=== PATIENT | female | born 1970 | race Caucasian/White ===

== ENCOUNTER → 2017-10-27 19:04 | Outpatient (CLI) | payer OTHER, SELFPAY ==
[2017-10-31 09:06] LABS: HPV Reflexed? NOT INDICATED
== END ==
PROVIDERS: Family Provider Family Medicine; PCP Family Medicine; Visit Provider Obstetrics & Gynecology
DX: Z12.4 Encounter for screening for malignant neoplasm of cervix (principal)
CPT/HCPCS: 88175; G0145

== ENCOUNTER → 2018-11-12 17:35 | Outpatient (CLI) | payer SELFPAY ==
--- NOTE | 2018-11-12 18:21 | MRI_ITS ---
STUDY: MRI BRAIN WITH AND WITHOUT CONTRAST REASON FOR EXAM: Female, 48 years old. Follow-up multiple sclerosis. TECHNIQUE: Standardized multiplanar fat and water weighted pulse sequences were obtained. IV Dotarem 10 was administered for the contrast portion of the examination. COMPARISON: 03/27/2015 MRI brain. FINDINGS: No appreciable change in the size, number, or configuration of supratentorial white matter FLAIR/T2 hyperintensities, pattern compatible with multiple sclerosis, with several callosal and pericallosal and subcortical lesions. No enhancement or restricted diffusion to suggest active demyelination. Mild symmetric volume loss of posterior vertebral hemispheres unchanged. No acute infarct, hemorrhage, or mass. No abnormal enhancement. Posterior fossa structures unremarkable. Flow voids preserved. No acute calvarial or extracranial soft tissue abnormality. Paranasal sinuses, mastoid air cells and middle ears patent. MRI/Brain W/WO Contrast IMPRESSION: No significant change compared to prior. Bilateral cerebral hemisphere white matter lesions compatible with multiple sclerosis again demonstrated. No enhancement or restricted diffusion to suggest active demyelination. Electronically Signed: Trip Campbell, at 20:12 EDT Tel , Service support ,
== END ==
PROVIDERS: Family Provider Family Medicine; PCP Family Medicine; Referring Provider Internal Medicine; Visit Provider Internal Medicine
DX: G35 Multiple sclerosis (principal)
CPT/HCPCS: 70553; A9575

== ENCOUNTER 2019-01-26 21:56 | Observation (INO) | payer OTHER, SELFPAY ==
[2019-01-26] VITALS (9 sets, daily range): BP systolic 100–116; BP diastolic 54–68; PULSE 76–88; RESP 16–18; TEMP 35.9–36.5; O2SAT 99–101; BMI 21.9; BMI 20.4
--- NOTE | 2019-01-26 21:58 | CT_ITS ---
STUDY: CT BRAIN WITHOUT CONTRAST REASON FOR EXAM: Female, 48 years old. Stroke. RADIATION DOSAGE (If Supplied By Facility): CTDIvol = ( 44.99 ) mGy, DLP = ( 745.49 ) mGycm TECHNIQUE: Transaxial CT imaging of the brain was performed without administration of intravenous contrast material. Individualized dose optimization techniques were used for this CT. COMPARISON: MRI of the brain, November 12, 2018. FINDINGS: Normal soft tissue structures. Normal calvarium. Normal size ventricles and extra-axial spaces for the patient''s age. Normal white matter tracts of the cerebral hemispheres. Normal basal ganglia and thalami. Normal brainstem. Normal cerebellum. There is no intracranial hemorrhage. There are no findings of an acute ischemic infarction. Normal visualized paranasal sinuses. CT/Brain/Head without Contrast IMPRESSION: No acute intracranial or calvarial abnormality. There is no major interval change. N.B. : The above information has been verbally conveyed by Kiel Gallegos DO to Abel Dolan MD, on 01/26/2019 22:09:47 (ET). Electronically Signed: Kiel Gallegos DO at 22:10 EST Tel [phone], Service support ,
--- NOTE | 2019-01-26 21:58 | EKG12_ITS ---
Test Reason : NEURO Blood Pressure : / mmHG Vent. Rate : 077 BPM Atrial Rate : 077 BPM P-R Int : 104 ms QRS Dur : 082 ms QT Int : 400 ms P-R-T Axes : 077 061 085 degrees QTc Int : 452 ms Sinus rhythm with sinus arrhythmia with short CT Otherwise normal ECG Confirmed by ALESIA LYNNE, BOUCHRA ([id number]), newspaper managing editor CARA MORAN ([id number]) on 01/27/2019 11:06:28 AM Referred By: Ganesh Simms Confirmed By:BOUCHRA DUMAS MD
--- NOTE | 2019-01-26 22:01 | ED.RN ---
NO OLD EKGS IN MUSE
--- NOTE | 2019-01-26 22:09 | RAD_ITS ---
HISTORY: weakness ADDITIONAL HISTORY: None provided. TECHNIQUE: Frontal chest radiograph. Number of images including paperwork: 1 COMPARISON: None FINDINGS: LUNGS AND PLEURA: No consolidation, mass or pleural effusion. CARDIAC SILHOUETTE: Unremarkable. MEDIASTINUM AND PETE: Unremarkable. UPPER ABDOMEN: Unremarkable. SKELETON AND SOFT TISSUES: No acute findings. OTHER DEVICES AND HARDWARE: None. RAD/Chest 1 View IMPRESSION: No acute cardiopulmonary abnormality. at 2221 Reported and signed by: Kalee Giang MD Electronically Signed: Kalee Giang MD at 22:21 EST Tel , Service support ,
[2019-01-26 22:15] LABS: Absolute Lymphocyte Count 3.99 X10^3/uL (0.83-4.51); Absolute Neutrophil Count 3.2 X10^3/uL (2.0-7.7); Basophil# 0.06 X10^3/uL; Basophil% 0.7 % (0-1); Eosinophil# 0.17 X10^3/uL; Eosinophils% 2.1 % (0-5); Hematocrit 39.6 % (37-47); Hemoglobin 13.4 g/dL (12.0-15.0); Lymphocyte # 3.99 X10^3/ul (4.0); Lymphocyte % 49.2 % (19-41); Mean Corp Hgb Conc 33.8 g/dL (32-36); Mean Corpuscular Hgb 30.6 pg (27.0-32.0); Mean Corpuscular Volume 90.4 fL (81-99); Mean Platelet Vol. 9.2 fl (6.2-12.0); Monocyte# 0.64 X10^3/uL; Monocyte% 7.9 % (0-10); NRBC Flagged by Analyzer 0 % (0-5); Neutrophil # 3.21 X10^3/uL (2.7-7.7); Neutrophil % 39.6 % (47-70); Platelet Count 200 K/mm3 (150-450); RBC Distribution Width CV 11.9 % (11.6-14.6); RBC Distribution Width SD 39.3 fl (35.1-43.9); Red Blood Count 4.38 M/mm3 (4.2-5.4); White Blood Count 8.1 K/mm3 (4.4-11.0)
[2019-01-26 22:23] LABS: International Normalized Ratio 1.1; Prothrombin Time (Protime)PT. 13.6 SECONDS (11.7-14.9)
[2019-01-26 22:24] LABS: Partial Thromboplast Time 32.3 Seconds (24.1-36.2)
[2019-01-26 22:41] LABS: Anion Gap 4 (5-15); BUN 14 mg/dL (7-18); BUN/Creat Ratio 15.5 RATIO (10-20); Calcium,Total 9.3 mg/dL (8.5-10.1); Chloride 106 mmol/L (98-107); EST Glomerular Filtration Rate 70 mL/min (>60); Est Glom Filt Rate - Afr Amer 85 mL/min (>60); Estimated Creatinine Clearance 59.15 ml/min; Glucose 118 mg/dL (74-106); Potassium 3.7 mmol/L (3.5-5.1); Sodium Level 142 mmol/L (136-145)
--- NOTE | 2019-01-26 22:48 | PCM.HP.STD ---
Problem List (1) TIA (transient ischemic attack) Status: Acute History of Present Illness Date of Admission: 01/26/19 Chief Complaint: garbled speech and right side facial droop The patient is a 48 year old F with a significant history of multiple sclerosis with left-sided weakness; hypothyroidism who presented to the emergency department with garbled speech and right sided facial droop that started few hours before presentation but resolved within 40 minutes. Stroke alert was called and tele-neurologist consulted. CT of the head was unremarkable. Emergency department doctor reported that telemetry neurologist recommended MRI of patient's brain. . Past Medical History Medical History: Medical History (Last Reviewed 01/27/19 @ 04:40 by Ganesh Simms MD) Multiple sclerosis G35 Allergies No Known Allergies Allergy (Verified 01/26/19 22:23) Home Medications: Ambulatory Orders Medication Instructions Recorded Cholecalciferol (Vitamin D3) 2,000 unit PO DAILY 01/26/19 [Vitamin D3] Clonazepam 0.58 mg PO QHS PRN 01/26/19 Levothyroxine Sodium 25 mcg PO DAILY 01/26/19 Oxybutynin Chloride [Oxybutynin 15 mg PO DAILY 01/26/19 Chloride ER] Surgical History: - - Tubal ligation Lives: With Family Smoking Status: Never smoker Alcohol: None - *Family History Maternal History Items: Stroke Paternal History Items: Heart Disease Review of Systems Constitutional: Denies: Chills, Fever, Weight Change HEENT: Denies: Head Aches, Sinus Congestion, Sinus Drainage Cardiovascular: Denies: Chest Pain, Palpitations Respiratory: Denies: Cough, Shortness of breath at rest, Sputum production Gastrointestinal: Denies: Abdominal Pain, Nausea, Vomiting Genitourinary: Denies: Dysuria Musculoskeletal: Denies: Joint Pain, Joint Tenderness Skin: Denies: Rash, Wounds Neurological: Reports: Blurred vision - chronic, Change in Speech - transient; resolved, Focal weakness - left side; chronic. Denies: Numbness, Tingling Psychiatric: Denies: Anxiety, Depression, Homicidal Ideations, Suicidal Ideations Hematologic/ Lymphatic: Denies: Easy Bruising, Easy Bleeding VTE Information - Inpt Only VTE Present on Admission: No VTE Mechan Device Prophylaxis: None VTE Pharm Prophylaxis ordered?: Yes Patient Problems: Active and Suspected Problems (Last Updated 01/26/19 @ 23:53 by Ganesh Simms MD) TIA (transient ischemic attack) (Acute) - Physical Exam Vitals/I&O's: Vital Signs Temp Pulse Resp BP Pulse Ox 96.7 F L 83 18 105/54 L 99 01/26/19 22:11 01/26/19 22:32 01/26/19 22:32 01/26/19 22:32 01/26/19 22:32 Oxygen Delivery Method Room Air Weight: 54.4 kg Body Mass Index (BMI) 21.9 Finger Stick Blood Glucose 109 General: Alert, Oriented x3, Cooperative HEENT: Atraumatic, PERRLA, EOMI, Normocephalic Neck: Supple, No JVD, Negative Carotid Bruits Lungs: Clear to auscultation, Normal air movement Cardiovascular: Regular rate, Regular Rhythm, Normal S1, Normal S2, No murmurs Abdomen: Bowel Sounds Present, Soft, Non Tender Extremities: No edema, Capillary Refill Less than 3 Seconds Skin: No rashes, No breakdown Musculoskeletal: No Tenderness to Palpation of Joints or Extremities Neurological: Cranial nerves II-XII grossly intact, - - strength in left upper extremity 2/5; strength in left lower extremity 3/5; strength in right upper extremities 5/5 Psych/Mental Status: Normal Affect, Appropriate Laboratory Results 01/26/19 22:08: WBC 8.1, RBC 4.38, Hgb 13.4, Hct 39.6, MCV 90.4, MCH 30.6, MCHC 33.8, RDW Std Deviation 39.3, RDW Coeff of Ata 11.9, Plt Count 200, MPV 9.2, Immature Gran % (Auto) 0.500, Neut % (Auto) 39.6 L, Lymph % (Auto) 49.2 H, [place] % (Auto) 7.9, Eos % (Auto) 2.1, Baso % (Auto) 0.7, Absolute Neuts (auto) 3.2, Absolute Lymphs (auto) 3.99, Nucleated RBC % 0 01/26/19 22:08: PT 13.6, INR 1.1, APTT 32.3 01/26/19 22:08: Sodium 142, Potassium 3.7, Chloride 106, Carbon Dioxide 32.0, Anion Gap 4 L, BUN 14, Creatinine 0.90, Estim Creat Clear Calc 59.15, Est GFR (MDRD) Af Amer 85, Est GFR (MDRD) Non-Af 70, BUN/Creatinine Ratio 15.5, Glucose 118 H, Calcium 9.3, Troponin I < 0.015 Assessment/Plan All Active Problems (Last Updated 01/26/19 @ 23:53 by Ganesh Simms MD) TIA (transient ischemic attack) (Acute) The patient is a 48 year old F with a significant history of multiple sclerosis with left-sided weakness; hypothyroidism who presented to the emergency department with garbled speech and right sided facial droop that started few hours before presentation but resolved within 40 minutes. Strokelike symptoms Differential Diagnoses include CVA; TIA; flare of multiple sclerosis. CT of the head was unremarkable -Check Hba1c, Lipid level Physical therapy, occupational therapy and speech therapy to work with patient. N.p.o. until bedside swallow eval. Daily aspirin. High intensity statin Serial troponin Telemetry monitoring Permissive HTN for 24 hrs. Control blood pressure with labetalol for systolic blood pressure of more than 220 or diastolic blood pressure of more than 120. MRI/MRA of head; brain; and neck. Echocardiogram ordered. Hypothyroidism Synthroid continued insomnia Insomnia Clonazepam continued Overactive bladder Oxybutynin continued Multiple sclerosis Vitamin D3 continued DVT prophylaxis Subcutaneous Lovenox. Code Visit OBSV E&M: 99008 Initial observation care L3
--- NOTE | 2019-01-26 22:54 | ED.VIS.STROK ---
History of Present Illness Chief Complaint: Neuro S/Sx Narrative: Patient presenting secondary to facial droop and speech difficulty. Patient has an underlying history of multiple sclerosis with baseline left-sided weakness. Patient at 2100 tonight had a witnessed onset of right-sided facial droop and expressive a aphasia per the . This lasted for about 40 minutes and then spontaneously resolved when EMS arrived. Patient has no history of prior similar episodes. She denies any visual changes, or persistent numbness or weakness at this time that is outside of her baseline. Patient has a additional history of hypothyroidism, but no other cerebrovascular risk factors. She is a non-smoker. Past Medical History - Allergies and Home Meds Allergies/Adverse Reactions: Allergies No Known Allergies Allergy (Verified 01/26/19 22:23) Primary Care Physician: Radha Winter NP-C [Primary Care Provider] - Past Medical History: - - Multiple sclerosis, hypothyroidism Smoking Status: Never smoker Review of Systems All systems negative except as indicated General: Denies: Chills, Fever, Sweats Eyes: Denies: Visual changes - bilaterally, Diplopia ENT: Denies: Rhinorrhea, Sore throat Cardiovascular: Denies: Chest pain, Palpitations Respiratory: Denies: Dyspnea, Cough, Dyspnea on exertion Gastrointestinal: Denies: Abdominal pain, Nausea, Vomiting, Diarrhea, Melena, Hematochezia Genitourinary: Denies: Dysuria, Hematuria, Frequency Musculoskeletal: Denies: Back pain, Extremity Pain Skin: Denies: Rash, Wounds Neurological: Reports: Weakness, - - Speech difficulty Psych: Denies: Depression Endocrine: Denies: Polyuria Hematologic: Denies: Easy bruising Allergy: Denies: Swelling of the mouth STROKE Vital Signs/Narrative: Vital Signs Temp Pulse Resp BP Pulse Ox 01/26/19 22:32 83 18 105/54 L 99 01/26/19 22:15 78 16 111/65 100 01/26/19 22:11 96.7 F L 82 16 106/58 L 101 01/26/19 22:00 88 16 116/65 100 01/26/19 21:59 100 Inital Vital Signs reviewed: Yes General: Well nourished, Well developed Head: Normocephalic, Atraumatic Eyes: Perrl, EOMI ENT: Moist mucous membranes, No rhinorrhea Neck: Supple, Nontender Cardiovascular: Regular rate, Regular rhythm, No murmurs Respiratory: No distress, CTA bilaterally, Chest nontender Abdomen: Soft, Nontender, Nondistended, Normal bowel sounds Back: Nontender, Normal Inspection Extremities: Nontender, No edema Skin: Normal color, No rash Neurological: - - NIH stroke scale is 2. 1 for left-sided arm weakness and 1 for left-sided leg weakness which is baseline Psychological: Normal affect Diagnostic/Tx/Re-eval - EKG Initial EKG Interpretation: - - Normal sinus rhythm with a rate of 77. Isoelectric ST segments normal T waves. No evidence of acute ischemia or arrhythmia. - Medical Decision Making Stroke Team Activated: Yes Patient presented with abnormal neurologic findings. Stroke team was activated prehospital. I evaluated the patient in the EMS bay, she had a patent airway and went directly to CT. Upon arrival back in the emergency department NIH was obtained which was found to be 2 secondary to baseline symptoms, the patient's symptoms for which she presented had completely resolved. I spoke with the tele-neurologist, and we agree that no TPA is indicated. Work-up for the patient was found to be negative. Patient will be admitted for further work-up of TIA. Critical care time (excluding procedures): 30-74 minutes ED Disposition - Plan for ED Patient: Disposition: Acute Care [facility] Diagnosis: TIA (transient ischemic attack)
--- NOTE | 2019-01-26 23:22 | ECHOD_ITS ---
Reason For Study: TIA/CVA Procedure This was a 2D Doppler, Color Flow transthoracic echocardiogram. Exam performed portable in patient room. Left Ventricle Normal size and thickness. The estimated ejection fraction is 65 %. Normal diastology for age. No regional wall motion abnormalities noted. Right Ventricle Normal size and thickness. Normal systolic function. Atria Normal left atrium. Normal right atrium. Normal atrial septum. Bubble contrast study negative for right to left interatrial shunt. Mitral Valve The mitral valve is structurally normal. No prolapse or stenosis seen. Tricuspid Valve Normal tricuspid valve. Unable to estimate RV systolic pressure due to insufficient tricuspid regurgitant envelope. Aortic Valve Normal aortic valve. Trisinus/trileaflet aortic valve. Pulmonic Valve The pulmonic valve is not well visualized. Great Vessels Normal aortic root. Normal arch. Normal inferior vena cava. Inferior vena cava collapse with sniff. Pericardium/Pleural No pericardial effusion. Medication Performed a rapid injection of agitated mix of 9 cc saline and 1cc air to assess for atrial septal defect. MMode/2D Measurements & Calculations LVIDd: 3.7 cm IVSd: 0.66 cm Ao root diam: 2.9 cm LVIDs: 2.4 cm LVPWd: 0.63 cm LA dimension: 2.3 cm FS: 34.8 % Time Measurements MV dec time: 0.19 sec Doppler Measurements & Calculations MV E max ron: 92.5 cm/sec Lat Peak E' Ron: 13.5 cm/sec Med Peak E' Ron: 15.3 cm/sec MV A max ron: 70.9 cm/sec E/E' lat: 6.9 E/E' med: 6.0 MV E/A: 1.3 Ao V2 max: 107.9 cm/sec LV V1 max: 86.5 cm/sec Ao max P.7 mmHg LV V1 max P.0 mmHg Interpretation Summary The estimated ejection fraction is 65 %. Normal diastology for age. Bubble contrast study negative for right to left interatrial shunt. Unable to estimate RV systolic pressure due to insufficient tricuspid regurgitant envelope. There is no comparison study available. Ordering Physician: Ganesh Simms Referring Physician: Radha Winter Performed By: Rafi Snow RCS
[2019-01-26] MEDS: Atorvastatin Calcium 80 MG Tablet PO (23:57)
[2019-01-27] VITALS (8 sets, daily range): BP systolic 87–99; BP diastolic 51–71; PULSE 68–91; RESP 15–16; TEMP 36.5–36.8; O2SAT 96–100; BMI 20.4
[2019-01-27] MEDS: Levothyroxine 25 MCG TABLET PO (05:13)
[2019-01-27 05:43] LABS: Cholesterol 163 mg/dL (200); High Density Lipoprotein 51 mg/dL; Triglycerides 37 mg/dL; Very Low Density Lipoprotein 7 mg/dL (5-40)
--- NOTE | 2019-01-27 08:00 | MRI_ITS ---
STUDY: MRA NECK WITH AND WITHOUT CONTRAST REASON FOR EXAM: Female, 48 years old. CVA TECHNIQUE: 3-D czav-qd-zjfoys (TOF) imaging was performed in an 1.5 T MRI scanner. dotarem 10ml iv was administered for the contrast enhanced images. COMPARISON: None. FINDINGS: RIGHT CAROTID ARTERIES: Normal right common carotid artery (CCA). Normal right common carotid bulb. Normal origin of the right internal carotid (ICA) artery without a hemodynamically significant stenosis. Normal visualized cervical portion of the right internal carotid artery. Normal origin of the right external carotid artery (ECA). LEFT CAROTID ARTERIES: Normal left common carotid artery (CCA). Normal left common carotid bulb. Normal origin of the left internal carotid (ICA) artery without a hemodynamically significant stenosis. Normal visualized cervical portion of the left internal carotid artery. Normal origin of the left external carotid artery (ECA). VERTEBRAL ARTERIES: Normal antegrade flow within the bilateral vertebral artery without a hemodynamically significant stenosis. MRI/MRA Neck WITH and W/O Contrast IMPRESSION: Normal bilateral cervical carotid and vertebral arteries. Electronically Signed: Lucy Martinez, at 14:26 EST Tel , Service support ,
--- NOTE | 2019-01-27 08:00 | MRI_ITS ---
STUDY: MRI BRAIN WITHOUT CONTRAST REASON FOR EXAM: Female, 48 years old. CVA, multiple sclerosis TECHNIQUE: Standardized multiplanar fat and water weighted pulse sequences were obtained. COMPARISON: Brain MRI 11/12/2018. FINDINGS: Normal size of the ventricles and extra-axial spaces for the patient''s age. Again seen are periventricular and subcortical white matter T2 and FLAIR signal hyperintensities, consistent with known multiple sclerosis . There is no evidence for recent intracranial ischemia or other cause of cytotoxic edema on diffusion weighted imaging (DWI). Normal bilateral basal ganglia. Normal thalami. There is no extra-axial fluid accumulation. Normal flow voids within the major intracranial circulation suggesting patency by spin echo criteria. Normal sella turcica, pituitary gland, infundibular stalk, optic chiasm and hypothalamus. Normal tectal plate and pineal gland. Normal midbrain, sissy and medulla. Normal cerebellum. Normal basal cisterns. Normal bilateral temporal bones. Normal bilateral internal auditory canals. No demonstrated orbital abnormality, within the constraints of a routine brain study. Normal visualized paranasal sinuses. Normal calvarium and skull base. Normal visualized soft tissue structures. Normal visualized upper cervical spine. MRI/Brain without Contrast IMPRESSION: Findings are not significantly changed from 11/12/2018. Again seen are findings consistent with known multiple sclerosis. No acute infarct . Electronically Signed: Lucy Martinez, at 14:40 EST Tel , Service support ,
--- NOTE | 2019-01-27 08:00 | MRI_ITS ---
STUDY: MRA OF THE HEAD WITHOUT CONTRAST REASON FOR EXAM: Female, 48 years old. CVA, MS TECHNIQUE: 3-D naip-va-avczij (TOF) imaging was performed with MIPs. The study was performed unenhanced. COMPARISON: None. FINDINGS: Normal bilateral petrous carotid arteries. Normal right cavernous carotid artery with a normal supraclinoid bifurcation. Normal left cavernous carotid artery with a normal supraclinoid bifurcation. Normal right A1 segments of the anterior cerebral artery. Normal left A1 segments of the anterior cerebral artery. Normal intact anterior communicating artery (ACOM). Normal bilateral A2 segments of the anterior cerebral arteries. Normal right M1 and M2 segments of the middle cerebral arteries, with a normal M1 bifurcation. Normal left M1 and M2 segments of the middle cerebral arteries, with a normal M1 bifurcation. Normal right posterior communicating artery (PCOM). Normal left posterior communicating artery (PCOM). Normal bilateral vertebral arteries. Normal basilar artery with a normal basilar bifurcation. The visualized bilateral superior cerebellar (SCA) arteries are normal. Normal bilateral P1, P2 and visualized P3 segments of the posterior cerebral arteries. There is no demonstrated aneurysm of the [place] of [place]. There is no major vessel occlusion or hemodynamically significant stenosis. There is no demonstrated abnormality of the visualized brain. MRI/MRA Head ONLY without Contrast IMPRESSION: Normal MRA of the head Electronically Signed: Lucy Martinez, at 10:03 EST Tel , Service support ,
[2019-01-27 08:28] LABS: Hemoglobin A1c 5.2 % (4.2-6.3)
[2019-01-27] MEDS: Tolterodine Tartrate 4 MG CAP.SA PO (09:53)
[2019-01-27] MEDS: Aspirin 81 MG TAB.CHEW PO (09:53)
[2019-01-27] MEDS: Enoxaparin 40 MG/0.4 ML Syringe SC (09:55)
--- NOTE | 2019-01-27 14:06 | DCINST_ITS ---
- Discharge Diagnoses Current Active Problems: Current Active and Chronic Problems (Last Reviewed 01/27/19 @ 04:40 by Ganesh Simms MD) TIA (transient ischemic attack) (Acute) You will use the following diet at home:: Regular Your food should be the consistency of: Regular Discharge Activity: Return to Normal Activity Weight Bearing Status: Weight bearing as tolerated Call your doctor if you observe: Fever of 101 or Higher, Shortness of breath, Dizziness, Fainting spells, Chest pain, Increased palpitations (irregular heartbeat), Uncontrolled pain Allergies/Adverse Reactions: Allergies No Known Allergies Allergy (Verified 01/26/19 22:23) Medications to take at Discharge Cholecalciferol (Vitamin D3) [Vitamin D3] 2,000 unit PO DAILY 01/26/19 Clonazepam 0.58 mg PO QHS PRN 01/26/19 Levothyroxine Sodium 25 mcg PO DAILY 01/26/19 Oxybutynin Chloride [Oxybutynin Chloride ER] 15 mg PO DAILY 01/26/19 Aspirin [Aspirin, Baby] 81 mg PO DAILY@0800 #90 tab.chew 01/27/19 The following prescriptions were given: Aspirin [Aspirin, Baby] 81 mg PO DAILY@0800 #90 tab.chew Prescription Printed Primary Care Physician: Radha Winter NP-C [Primary Care Provider] - Please follow up with your Primary Care Physician in: 1-2 week. Test Results: Test results from this visit will be discussed in further detail at your follow- up appointment, if applicable.
--- NOTE | 2019-01-27 14:07 | DS.PCM_ITS ---
Discharge Date and Diagnosis Date of Admission: 01/26/19 Date of Discharge: 01/27/19 - Primary Discharge Diagnosis Active and Suspected Problems (Last Reviewed 01/27/19 @ 04:40 by Ganesh Simms MD) Probable TIA (transient ischemic attack) (Acute) Hospital Course and Treatment Imaging Results: 01/27/19 08:00 Brain without Contrast [MRI] Routine MRA Head ONLY without Contrast [MRI] Routine MRA Neck WITH and W/O Contrast [MRI] Routine Clinical Impression(s) from Imaging Studies Brain CT 01/26/19 21:58 IMPRESSION: No acute intracranial or calvarial abnormality. There is no major interval change. N.B. : The above information has been verbally conveyed by Kiel Gallegos DO to Abel Dolan MD, on 01/26/2019 22:09:47 (ET). Electronically Signed: Kiel Gallegos DO at 22:10 EST Tel [phone], Service support , ADDENDUM: 01/26/19 2217 IMPRESSION: No acute intracranial or calvarial abnormality. There is no major interval change. N.B. : The above information has been verbally conveyed by Kiel Gallegos DO to Abel Dolan MD, on 01/26/2019 22:09:47 (ET). Electronically Signed: Kiel Gallegos DO at 22:10 EST Tel [phone], Service support , Chest X-Ray 01/26/19 22:09 IMPRESSION: No acute cardiopulmonary abnormality. at 2221 Reported and signed by: Kalee Giang MD Electronically Signed: Kalee Giang MD at 22:21 EST Tel , Service support , Brain MRI 01/27/19 08:00 IMPRESSION: Findings are not significantly changed from 11/12/2018. Again seen are findings consistent with known multiple sclerosis. No acute infarct . Electronically Signed: Lucy Martinez, at 14:40 EST Tel , Service support , Head MRA 01/27/19 08:00 IMPRESSION: Normal MRA of the head Electronically Signed: Lucy Martinez, at 10:03 EST Tel , Service support , Neck MRA 01/27/19 08:00 IMPRESSION: Normal bilateral cervical carotid and vertebral arteries. Electronically Signed: Lucy Martinez, at 14:26 EST Tel , Service support , Operations: None Procedures: None, EKG Summary of Care Provided: Patient seen and examined on the day of discharge and appeared to be stable to be discharged home. Acute stroke ruled out. Symptoms of slurred speech and right facial droop resolved. Her vital signs are stable. The patient is a 48 year old F patient with past medical history of multiple sclerosis presented to the emergency room because of slurred speech and right facial droop. Initial CT scan brain showed no acute findings. Her EKG revealed normal sinus rhythm without evidence of cardiac arrhythmias or acute ischemic changes. After admission, her symptoms resolved. Tele-stroke consulted and recommended MRI of the brain. MRI brain showed no evidence of acute infarct or hemorrhage, multiple sclerosis findings are marked significantly changed from MRI that was done on October. MRA of the head and neck showed no evidence of hemodynamically significant vascular disease or stenosis. Patient was treated with aspirin and statins. Her routine blood work was unremarkable. Lipid profile revealed total cholesterol of 163, LDL cholesterol of 105 and HDL cholesterol of 51. Troponin was negative. 2D echocardiogram revealed ejection fraction of 65%, normal diastology, bubble contrast study negative for holpp-of-[id number] shunt. Acute stroke ruled out. Her symptoms probably due to TIA although it was not so clear because of history of multiple sclerosis. Patient discharged home in a stable condition, discharged on aspirin, continued on her previous home medications without any changes, recommended follow-up with PCP in 1 to 2 weeks. - Physical Exam Vitals/I&O's: Vital Signs Temp Pulse Resp BP Pulse Ox 97.7 F L 91 16 99/66 97 01/27/19 11:29 01/27/19 11:47 01/27/19 11:29 01/27/19 11:29 01/27/19 11:29 Oxygen Delivery Method Room Air Weight: 111 lb 12.39 oz Body Mass Index (BMI) 20.4 Finger Stick Blood Glucose 109 Intake and Output for Last 24 Hours 01/25/19 01/26/19 01/27/19 23:59 23:59 23:59 Intake Total 810 / 810 Balance 810 / 810 General: Alert, Oriented x3, Cooperative, No apparent distress HEENT: Atraumatic, PERRLA, EOMI, Normocephalic Oral: Moist Mucosa, No Gingival or Mucosal Lesions/ Ulcerations Neck: Supple, No JVD, Negative Carotid Bruits, Trachea Midline, Thyroid Normal Size and Texture Lungs: Clear to auscultation, Normal air movement, No rhonchi, No wheeze, No rales Cardiovascular: Regular rate, Regular Rhythm, Normal S1, Normal S2, PMI Normal Abdomen: Bowel Sounds Present, Soft, Non Tender, Non-Distended, No Hepato- splenomegaly Extremities: No clubbing, No cyanosis, No edema Skin: No rashes, No breakdown Lymphatic: No Cervical, Supraclavicular, or Inguinal Adenopathy Neurological: Cranial nerves II-XII grossly intact, Neuro grossly intact Psych/Mental Status: Normal Affect, Appropriate Laboratory Results 01/26/19 22:08: WBC 8.1, RBC 4.38, Hgb 13.4, Hct 39.6, MCV 90.4, MCH 30.6, MCHC 33.8, RDW Std Deviation 39.3, RDW Coeff of Ata 11.9, Plt Count 200, MPV 9.2, Immature Gran % (Auto) 0.500, Neut % (Auto) 39.6 L, Lymph % (Auto) 49.2 H, [place] % (Auto) 7.9, Eos % (Auto) 2.1, Baso % (Auto) 0.7, Absolute Neuts (auto) 3.2, Absolute Lymphs (auto) 3.99, Nucleated RBC % 0 01/26/19 22:08: PT 13.6, INR 1.1, APTT 32.3 12/10/19 22:08: Sodium 142, Potassium 3.7, Chloride 106, Carbon Dioxide 32.0, Anion Gap 4 L, BUN 14, Creatinine 0.90, Estim Creat Clear Calc 59.15, Est GFR (MDRD) Af Amer 85, Est GFR (MDRD) Non-Af 70, BUN/Creatinine Ratio 15.5, Glucose 118 H, Calcium 9.3, Troponin I < 0.015 01/27/19 01:40: Troponin I < 0.015 01/27/19 04:40: Hemoglobin A1c 5.2 01/27/19 04:40: Troponin I < 0.015, Triglycerides 37, Cholesterol 163, LDL Cholesterol 105, VLDL Cholesterol 7, HDL Cholesterol 51 Current Medications Acetaminophen (Tylenol) 650 mg PO Q6H PRN PRN PRN Reason: Pain Score 1-3/Temp > 100.7 F Aspirin (Aspirin, Baby) 81 mg PO DAILY@0800 [facility] Last Admin: 01/27/19 09:53 Dose: 81 mg Documented by: Atorvastatin Calcium (Lipitor) 80 mg PO QHS [facility] Last Admin: 01/26/19 23:57 Dose: 80 mg Documented by: Cholecalciferol (Vitamin D) 2,000 unit PO DAILY [facility] Last Admin: 01/27/19 09:54 Dose: 2,000 unit Documented by: Clonazepam (Klonopin) 0.58 mg PO QHS PRN PRN Reason: SLEEP Enoxaparin Sodium (Lovenox) 40 mg SC DAILY [facility] Last Admin: 01/27/19 09:55 Dose: 40 mg Documented by: Glucagon () 1 mg IM .X1 PRN PRN Reason: Hypoglycemia Sodium Chloride () 250 mls @ 15 mls/hr IV .[id number] PRN PRN Reason: Saline Flush Dextrose (Dextrose 10%-Water) 250 mls @ 999 mls/hr IV X1 PRN; Protocol PRN Reason: HYPOGLYCEMIA Labetalol HCl (Trandate) 10 mg IV Q10M PRN PRN Reason: MAINTAIN BP < 220/120 Stop: 01/27/19 23:23 Levothyroxine Sodium (Synthroid) 25 mcg PO DAILY@0600 [facility] Last Admin: 01/27/19 05:13 Dose: 25 mcg Documented by: Ondansetron HCl (Zofran) 4 mg IV Q8H PRN PRN PRN Reason: NAUSEA/VOMITING Sodium Chloride () 10 - 40 ml IV UD PRN PRN Reason: SALINE FLUSH Tolterodine Tartrate (Detrol La) 4 mg PO DAILY [facility] Last Admin: 01/27/19 09:53 Dose: 4 mg Documented by: Discharge Activity: Return to Normal Activity Weight Bearing Status: Weight bearing as tolerated Call your doctor if you observe: Fever of 101 or Higher, Shortness of breath, Dizziness, Fainting spells, Chest pain, Increased palpitations (irregular heartbeat), Uncontrolled pain Home Medications: Medications to take at Discharge Cholecalciferol (Vitamin D3) [Vitamin D3] 2,000 unit PO DAILY 01/26/19 Clonazepam 0.58 mg PO QHS PRN 01/26/19 Levothyroxine Sodium 25 mcg PO DAILY 01/26/19 Oxybutynin Chloride [Oxybutynin Chloride ER] 15 mg PO DAILY 01/26/19 Aspirin [Aspirin, Baby] 81 mg PO DAILY@0800 #90 tab.chew 01/27/19 Following Prescrptions Were Given to Patient: Aspirin [Aspirin, Baby] 81 mg PO DAILY@0800 #90 tab.chew Prescription Printed Primary Care Physician: Radha Winter NP-C [Primary Care Provider] - Please follow up with your Primary Care Physician in: 1-2 week. Disposition: Home Minutes spent on discharge:: 28 Patient Condition:: Stable Medical Necessity - Tobacco Use Smoking Status: Never smoker Tobacco Use: Non-smoker Meaningful Use Info Meaningful Use Diagnoses (Choose all that apply): None applicable Code Visit OBSV E&M: 60603 Observation care discharge
== END 2019-01-27 14:06 | disposition home or self-care (01) ==
LOC: ED 22:58 → PCU 23:16
PROVIDERS: Admitting Provider Hospitalist; Emergency Provider Emergency Medicine; Family Provider Nurse Practitioner Primary Care; PCP Nurse Practitioner Primary Care; Referring Provider Hospitalist; Visit Provider Hospitalist
DX: R29.810 Facial weakness (principal); R47.81 Slurred speech; G35 Multiple sclerosis; E03.9 Hypothyroidism, unspecified; Z79.899 Other long term (current) drug therapy; N32.81 Overactive bladder; G47.00 Insomnia, unspecified; R29.702 NIHSS score 2
CPT/HCPCS: 36415; 70450; 70544; 70549; 70551; 71045; 80048; 80061; 83036; 84484; 85025; 85610; 85730; 92610; 93005; 93306; 96372; 97162; 97166; 99218; 99285; A9575; A4216; G0378

== ENCOUNTER → 2019-09-17 | Outpatient (CLI) | payer SELFPAY ==
[2019-01-27 09:50] VITALS: BMI 20.4
[2019-09-22 14:43] LABS: HPV Reflexed? NOT INDICATED
== END | disposition home or self-care (01) ==
LOC: LABSPEC 13:45
PROVIDERS: PCP Nurse Practitioner Primary Care; Visit Provider Obstetrics & Gynecology
DX: Z12.4 Encounter for screening for malignant neoplasm of cervix (principal)
CPT/HCPCS: 88175; G0145

== ENCOUNTER 2019-12-20 16:07 | Emergency (ER) | payer OTHER, SELFPAY ==
[2019-01-27 09:50] VITALS: BMI 20.4
[2019-12-20 16:07] VITALS: BP 102/62; PULSE 90; RESP 16; TEMP 36.4; O2SAT 100; BMI 27.4
--- NOTE | 2019-12-20 16:26 | ED.VIS.GEN ---
History of Present Illness Chief Complaint: Abd Pain Informant: Patient, Family Narrative: Patient is a 49-year-old female with a past medical history of MS, hypothyroidism who presents to the emergency department for right lower quadrant abdominal pain. This has been present over the past 3 to 4 days. The pain has been getting progressively worse. While sitting still she is currently rating the pain as a 5 out of 10. Laughing and movement seem to make the pain worse. She has not tried taking anything today for it. Just prior to this starting she did have a few episodes of diarrhea. She had a fever at that time. Both of these symptoms have resolved. She denies any cough or shortness of breath. No chest pain. No radiation of her symptoms into her back. She has never had this pain before. Only previous abdominal surgeries were for tubal ligation. She denies any urinary symptoms. Past Medical History - Allergies and Home Meds Allergies/Adverse Reactions: Allergies No Known Allergies Allergy (Verified 01/26/19 22:23) Primary Care Physician: Radha Winter SENIOR UNIX ADMINISTRATOR, SENIOR UNIX ADMINISTRATOR-C [Primary Care Provider] - 2 Days Past Medical History: - - Multiple sclerosis, hypothyroidism Surgical History: - - Tubal ligation Smoking Status: Never smoker - Family History Maternal Family History: Reports: Stroke Paternal Family History: Reports: Heart Disease Review of Systems All systems negative except as indicated General: Reports: Fever. Denies: Chills, Sweats Eyes: Denies: Visual changes - bilaterally, Diplopia ENT: Denies: Rhinorrhea, Sore throat Cardiovascular: Denies: Chest pain, Palpitations Respiratory: Denies: Dyspnea, Cough, Dyspnea on exertion Gastrointestinal: Reports: Abdominal pain, Diarrhea. Denies: Nausea, Vomiting, Melena, Hematochezia Genitourinary: Denies: Dysuria, Hematuria, Frequency Musculoskeletal: Denies: Back pain, Extremity Pain Skin: Denies: Rash, Wounds Neurological: Denies: Headache, Weakness, Numbness Physical Exam Vital Signs/Narrative: Vital Signs Temp Pulse Resp BP Pulse Ox 12/20/19 16:07 97.6 F L 90 16 102/62 100 Inital Vital Signs reviewed: Yes General: Well nourished, Well developed, No Acute Distress Head: Normocephalic, Atraumatic Eyes: Perrl, EOMI ENT: Moist mucous membranes, No rhinorrhea Neck: Supple, Nontender Cardiovascular: Regular rate, Regular rhythm, No murmurs Respiratory: No distress, CTA bilaterally, Chest nontender Abdomen: Soft, Nondistended, Normal bowel sounds, Tender - Right lower quadrant, Rovsig's sign. Negative for: Guarding, Rebound tenderness, Lindsay's sign Back: Nontender, Normal Inspection Extremities: Nontender, No edema Skin: Normal color, No rash Neurological: Alert, Oriented x3, Cranial nerves II-XII grossly intact, Normal Sensation, - - Left-sided weakness that is chronic due to her MS Psychological: Normal affect, Normal Mood Diagnostic/Tx/Re-eval - Medical Decision Making Patient presents to the emergency department for right lower quadrant abdominal pain. She was sent in by her PCP to evaluate for appendicitis. Upon arrival to the emergency department vital signs within normal limits. She does not appear in any acute distress. She does have significant tenderness in the right lower quadrant. Will check basic lab work along with CT scan of the abdomen/pelvis. She is currently refusing anything for pain at this time. Patient's lab work did not reveal any significant acute abnormality. Her white blood cell count is within normal limits. Urine had 2+ bacteria but no white blood cells. She is not having any urinary symptoms so we will send for culture and treat if this comes back positive. CT scan did not show any evidence of appendicitis although appendix was not well visualized. There was pretty significant fecal retention. She does have tenderness in the right lower quadrant but no peritoneal signs. Overall very benign abdominal exam to make me not think that this is an ovarian torsion and is going on for multiple days. Patient is agreeable to trying an outpatient treatment of Colace and MiraLAX. She needs to be reexamined in the next 1 to 2 days. Warning signs and symptoms for which to return to the ED were reviewed with her. She understands and is agreeable with this plan. All questions answered. ED Disposition - Plan for ED Patient: Disposition: Home or Assisted Living Diagnosis: Fecal retention, Abdominal pain Instructions: ED Abdominal Pain Unkn Cause Fem, ED Constipation Prescriptions: Docusate Sodium [Colace] 100 mg PO BID #30 cap Prescription Printed Polyethylene Glycol 3350 [Miralax] 17 gm PO DAILY 5 Days #5 [email or web address] Prescription Printed Referrals: Radha Winter SENIOR UNIX ADMINISTRATOR, SENIOR UNIX ADMINISTRATOR-C [Primary Care Provider] - 2 Days
[2019-12-20 16:39] LABS: Mucous, Urine 0 SEEN /hpf (<or=2+); Red Blood Cells-Urine 0 SEEN /hpf (0-5)
[2019-12-20 16:46] LABS: Color, Urine Yellow (Yellow); Glucose, Dipstick Normal (Normal); Ketone-Dipstick Negative (Negative); Leukocyte Esterase-Dipstick 500 /ul (Negative); Nitrite-Dipstick Negative (Negative); Occult Blood-Urine 10 /ul (Negative); Protein-Dipstick Negative (Negative); Specific Gravity, Urine 1.005 (1.002-1.030); Urine Bilirubin Dipstick Negative (Negative); Urine Clarity Clear (Clear); Urine Urobilinogen Normal (Normal)
[2019-12-20 17:00] LABS: Absolute Lymphocyte Count 1.94 X10^3/uL (0.83-4.51); Absolute Neutrophil Count 2.8 X10^3/uL (2.0-7.7); Basophil# 0.04 X10^3/uL; Basophil% 0.7 % (0-1); Eosinophil# 0.12 X10^3/uL; Eosinophils% 2.2 % (0-5); Hematocrit 35.8 % (37-47); Hemoglobin 11.5 g/dL (12.0-15.0); Lymphocyte # 1.94 X10^3/ul (4.0); Lymphocyte % 36.1 % (19-41); Mean Corp Hgb Conc 32.1 g/dL (32-36); Mean Corpuscular Hgb 29.3 pg (27.0-32.0); Mean Corpuscular Volume 91.1 fL (81-99); Mean Platelet Vol. 8.8 fl (6.2-12.0); Monocyte# 0.48 X10^3/uL; Monocyte% 8.9 % (0-10); NRBC Flagged by Analyzer 0 % (0-5); Neutrophil # 2.77 X10^3/uL (2.7-7.7); Neutrophil % 51.5 % (47-70); Platelet Count 266 K/mm3 (150-450); RBC Distribution Width CV 12.3 % (11.6-14.6); RBC Distribution Width SD 41.5 fl (35.1-43.9); Red Blood Count 3.93 M/mm3 (4.2-5.4); White Blood Count 5.4 K/mm3 (4.4-11.0)
[2019-12-20 17:20] LABS: ALB/GLOB Ratio 0.8 RATIO (0.9-2.4); AST(SGOT) 14 U/L (15-37); Alanine Aminotransfer ALT/SGPT 20 U/L (13-56); Albumin, Serum 3.3 g/dL (3.2-5.0); Alkaline Phosphatase 61 U/L (45-117); Anion Gap 5 (5-15); BUN 9 mg/dL (7-18); BUN/Creat Ratio 13.1 RATIO (10-20); Calcium,Total 9.2 mg/dL (8.5-10.1); Chloride 103 mmol/L (98-107); Creatinine, Serum 0.69 mg/dL (0.55-1.02); EST Glomerular Filtration Rate 96 mL/min (>60); Est Glom Filt Rate - Afr Amer 116 mL/min (>60); Estimated Creatinine Clearance 76.29 ml/min; Globulin 4.2 g/dL (2.2-4.2); Glucose 101 mg/dL (74-106); Lipase 101 U/L (73-393); Potassium 3.5 mmol/L (3.5-5.1); Protein, Total 7.5 g/dL (6.4-8.2); Sodium Level 141 mmol/L (136-145)
[2019-12-20 17:26] LABS: Bacteria 2+ /hpf (None Seen); Internal QC Validated? YES +Cl - CLEAR BKGD; Pregnancy, Urine Negative Negative; Squamous Epithelial Cells - UA 0-5 SEEN /hpf (5-10); White Blood Cells 0-5 SEEN /hpf (0-5)
--- NOTE | 2019-12-20 18:13 | CT_ITS ---
STUDY: CT ABDOMEN AND PELVIS WITH CONTRAST REASON FOR EXAM: Female, 49 years old. RLQ PAIN RADIATION DOSAGE (If Supplied By Facility): CTDIvol = ( 8.04 ) mGy, DLP = ( 286.35 ) mGycm TECHNIQUE: Transaxial images were obtained from the dome of the diaphragm to the symphysis pubis with oral contrast. Oral and amp; IV Gastrografin and amp; 100mL Isovue-300 was administered. Sagittal and coronal images were reconstructed. Individualized dose optimization techniques were used for this CT. COMPARISON: None. FINDINGS: The visualized lung bases are unremarkable. The visualized portions of the heart are within normal limits. Normal liver. Normal gallbladder and extrahepatic biliary system. Normal spleen. Normal pancreas. Normal bilateral adrenal glands. Normal right kidney. Normal left kidney. Normal visualized stomach. Normal small intestine. Evaluation of the large bowel is limited because although oral contrast was given, the CT scan was performed too early and no contrast has reached the large bowel. Cannot exclude segments of large bowel wall thickening. There is moderate to marked fecal retention. The appendix is not very well seen but there is no evidence for a right lower quadrant inflammatory process. Normal abdominal aorta. Normal inferior vena cava. Normal retroperitoneum. Normal urinary bladder. Normal visualized uterus. Normal abdominal wall. Normal osseous structures. CT/Abdomen/Pelvis WITH Contrast IMPRESSION: Inadequate evaluation of the large bowel which is not adequately opacified. Moderate to marked fecal retention in some segments. Cannot include segments of large bowel wall thickening. No other definite acute or significant abnormality seen. Electronically Signed: Scott Fowler MD at 18:52 EST , Service support ,
[2019-12-20 18:22] VITALS: RESP 16
[2019-12-20 19:32] VITALS: BP 128/80; PULSE 78; RESP 16; O2SAT 96
== END 2019-12-20 19:32 | disposition home or self-care (01) ==
PROVIDERS: Emergency Provider Emergency Medicine; PCP Nurse Practitioner Primary Care
DX: K59.00 Constipation, unspecified (principal); R10.9 Unspecified abdominal pain; E03.9 Hypothyroidism, unspecified; G35 Multiple sclerosis; Z79.899 Other long term (current) drug therapy; Z79.82 Long term (current) use of aspirin
CPT/HCPCS: 74177; 80053; 81001; 81025; 83690; 85025; 87086; 87088; 99283; Q9967; A4216

== ENCOUNTER → 2020-05-12 07:11 | Outpatient (CLI) | payer SELFPAY ==
--- NOTE | 2020-05-12 07:28 | MRI_ITS ---
STUDY: MRI BRAIN WITH AND WITHOUT CONTRAST REASON FOR EXAM: Female, 49 years old. MULTIPLE SCLEROSIS TECHNIQUE: Standardized multiplanar fat and water weighted pulse sequences were obtained. 11ml DOtarem via IV was administered for the contrast portion of the examination. COMPARISON: 01/27/2019 FINDINGS: There is moderate cerebral atrophy with widening of the extra-axial spaces and ventricular dilatation. There is no change in the confluent hyperintensities in the periventricular and pericallosal white matter consistent with known demyelinating disease (multiple sclerosis). No contrast-enhancing plaque. There is no evidence for recent intracranial ischemia or other cause of cytotoxic edema on diffusion weighted imaging (DWI). Normal T2* images of the brain without demonstrated susceptibility artifact. There is no demonstrated hemosiderin stain. Normal bilateral basal ganglia. Normal thalami. There is no extra-axial fluid accumulation. Normal flow voids within the major intracranial circulation suggesting patency by spin echo criteria. Normal venous enhancement. There is no enhancing intra-axial or extra-axial abnormality. Normal sella turcica, pituitary gland, infundibular stalk, optic chiasm and hypothalamus. Normal tectal plate and pineal gland. Normal midbrain, sissy and medulla. Normal cerebellum. Normal basal cisterns. Normal bilateral temporal bones. Normal bilateral internal auditory canals. No demonstrated orbital abnormality, within the constraints of a routine brain study. Normal visualized paranasal sinuses. Normal calvarium and skull base. Normal visualized soft tissue structures. Normal visualized upper cervical spine. MRI/Brain W/WO Contrast IMPRESSION: No change from 01/27/2019. Electronically Signed: Marcelino Vergara MD at 10:46 EDT Tel , Service support ,
== END ==
PROVIDERS: PCP Nurse Practitioner Primary Care; Referring Provider Internal Medicine; Visit Provider Internal Medicine
DX: G35 Multiple sclerosis (principal); R41.0 Disorientation, unspecified; A81.2 Progressive multifocal leukoencephalopathy; Z86.73 Personal history of transient ischemic attack (TIA), and cerebral infarction without residual deficits
CPT/HCPCS: 70553; A9575

== ENCOUNTER 2023-08-26 13:35 | Emergency (ER) | payer OTHER, SELFPAY ==
[2023-08-26 13:36] VITALS: BP 105/79; PULSE 99; RESP 17; TEMP 36.6; O2SAT 96
--- NOTE | 2023-08-26 14:10 | CT_ITS ---
STUDY: CT BRAIN WITHOUT CONTRAST REASON FOR EXAM: Female, 53 years old. History of fall. Head injury. Multiple seizures. RADIATION DOSAGE (If Supplied By Facility): CTDIvol = ( 44.99 ) mGy, DLP = ( 796.11 ) mGycm TECHNIQUE: Transaxial CT imaging of the brain was performed without administration of intravenous contrast material. Individualized dose optimization techniques were used for this CT. COMPARISON: Comparison is made with prior study dated January 26, 2019. FINDINGS: Soft tissue swelling overlying the left periorbital region. Normal calvarium. There is mild cerebral atrophy with widening of the extra-axial spaces and ventricular dilatation. There are areas of decreased attenuation within the white matter tracts of the supratentorial brain, consistent with microvascular disease changes. Normal basal ganglia and thalami. Normal brainstem. Normal cerebellum. There is no intracranial hemorrhage. There are no findings of an acute ischemic infarction. There is a depressed fracture along the lateral wall of the left maxillary sinus with an air-fluid level. Air-fluid level is also seen in the left sphenoid sinus. Soft tissue density in the left ethmoid sinus. Comminuted depressed fracture of the left zygomatic arch. CT/Brain/Head without Contrast IMPRESSION: Chronic involutional changes of the brain. Depressed fracture of the lateral wall of the left maxillary sinus with air-fluid level in the left maxillary sinus and left sphenoid. Comminuted depressed fracture of the left zygomatic arch. Electronically Signed: Fortunato Gutierrez MD at 14:49 EDT ,
--- NOTE | 2023-08-26 14:10 | EKG12_ITS ---
Test Reason : FALL Blood Pressure : / mmHG Vent. Rate : 088 BPM Atrial Rate : 088 BPM P-R Int : 138 ms QRS Dur : 090 ms QT Int : 400 ms P-R-T Axes : 084 053 068 degrees QTc Int : 484 ms Normal sinus rhythm with sinus arrhythmia Prolonged QT Abnormal ECG Confirmed by Abel Mauricio ([id number]), supervising film or videotape editor NATAN ESTEVEZ ([id number]) on 08/27/2023 9:52:58 AM Referred By: Confirmed By:Abel Mauricio
--- NOTE | 2023-08-26 14:10 | CT_ITS ---
STUDY: CT CERVICAL SPINE WITHOUT CONTRAST REASON FOR EXAM: Female, 53 years old. History multiple sclerosis. History of fall. Multiple seizures. RADIATION DOSAGE (If Supplied By Facility): CTDIvol = ( 12.68 ) mGy, DLP = ( 260.48 ) mGycm TECHNIQUE: High resolution transaxial imaging was performed without contrast material. Sagittal and coronal images were reconstructed. Individualized dose optimization techniques were used for this CT. COMPARISON: None FINDINGS: Normal craniovertebral junction. Normal anterior atlantoaxial articulation. Normal odontoid process. Normal cervical lordosis. Normal vertebral bodies and posterior osseous elements. C2-3: Normal endplates. Normal disc height and morphology. Normal central canal and intervertebral neuroforamina. C3-4: Normal endplates. Normal disc height and morphology. Normal central canal and intervertebral neuroforamina. C4-5: Normal endplates. Normal disc height and morphology. Normal central canal and intervertebral neuroforamina. C5-6: Normal endplates. Normal disc height and morphology. Normal central canal and intervertebral neuroforamina. C6-7: Normal endplates. Normal disc height and morphology. Normal central canal and intervertebral neuroforamina. C7-T1: Normal endplates. Normal disc height and morphology. Normal central canal and intervertebral neuroforamina. Air-fluid level seen in the left sphenoid sinus. Findings suggestive of scarring in the upper lobes. CT/Spine Cervical without Contras IMPRESSION: Air-fluid level seen in the left sphenoid sinus. Cervical spine is unremarkable otherwise. Electronically Signed: Fortunato Gutierrez MD at 15:01 EDT ,
--- NOTE | 2023-08-26 14:11 | EDS_ITS ---
HPI HPI - Fall History of Present Illness Chief Complaint: Fall Narrative Narrative: History and physical is limited secondary to current patient condition, and she received Versed. 53-year-old female presents via EMS status post fall. She has history of MS according to her with muscle spasticity and contractures of the left arm and left lower extremity. She was at home walking with her walker, and they think that one of the wheels may have fallen off. She had a mechanical fall. Her daughter had come over and found her lying on the floor. Reportedly, initially she was responsive, and had a seizure at home. They called EMS and EMS reported a second seizure and administered 5 mg of Versed. She has had shaking episodes in the past. She presents to the emergency department status post fall. Tetanus Immunization: Unknown [facility] Medical History Spastic Anxiety Multiple sclerosis Home Medications ?Medication ?Instructions ?Recorded ?Last Taken ?Type levothyroxine 25 mcg tablet 25 mcg PO DAILY 01/26/19 01/26/19 History oxybutynin chloride 15 mg 15 mg PO DAILY 01/26/19 01/26/19 History tablet,extended release 24 hr aspirin 81 mg chewable tablet 81 mg PO DAILY@0800 ##90 01/27/19 Unknown Rx docusate sodium 100 mg capsule 100 mg PO BID #30 caps 12/20/19 Unknown Rx clonazepam 0.5 mg tablet 0.5 mg PO QHS PRN PRN anxiety 08/26/23 Unknown History natalizumab 300 mg/15 mL 300 mg IV Q28D 08/26/23 Unknown History intravenous solution (Tysabri) Allergy/AdvReac Type Severity Reaction Status Date / Time No Known Allergies Allergy Verified 08/26/23 13:47 Social History Smoking Status: Never smoker ROS ROS ED Review of Systems ROS Unobtainable: due to mental status EXAM Physical Exam Narrative Exam Narrative: Afebrile. Vital signs noted. Drowsy secondary to administration of Versed. Positive abrasion left forehead with mild periorbital ecchymosis. Regular rate and rhythm. Lungs clear to auscultation bilaterally. Abdomen soft nontender with normoactive bowel sounds. Pelvis stable. Const Vital Signs: 08/26/23 13:36 08/26/23 13:48 08/26/23 14:35 Temperature 97.8 F Temperature Source Temporal Pulse Rate 99 89 Respiratory Rate 17 16 Respiratory Effort Normal Non-Labored Respiratory Depth Normal Respiratory Pattern Normal Blood Pressure 105/79 124/79 H Blood Pressure Mean 87 94 Pulse Ox 96 99 Oxygen Delivery Method Room Air Room Air Room Air 08/26/23 15:20 08/26/23 16:05 Temperature Temperature Source Pulse Rate 90 85 Respiratory Rate 17 16 Respiratory Effort Respiratory Depth Respiratory Pattern Blood Pressure 118/98 H 110/59 L Blood Pressure Mean 104 76 Pulse Ox 98 99 Oxygen Delivery Method Room Air Room Air MDM MDM MDM Narrative Medical decision making narrative: In the differential diagnosis is intracranial hemorrhage along with seizure secondary to closed head injury. Currently, patient is in a c-collar. CT imaging of the brain and of the C-spine will be obtained. Her mental status is decreased secondary to administration of benzodiazepine. EKG was obtained and interpreted by myself independently as normal sinus rhythm with sinus arrhythmia at 88 bpm without other ectopy or acute ST changes. No STEMI. I reviewed the radiology report of the CT of the brain and there is no evidence of intracranial hemorrhage, however there is a left lateral maxillary sinus wall fracture and fracture of the left zygomatic arch. CT of the cervical spine shows no evidence of an acute fracture. She was removed from this clinically by the RN. Chest x-ray in 1 view interpreted by myself independently shows no evidence of an acute fracture or pneumothorax or pneumonia. Also on my independent review of the pelvis and right hip, there is no evidence of fracture. I reviewed the radiology report which confirms my independent interpretation. Repeat examination shows her to be more awake, and alert and following commands. Her states that she confirmed that she had a mechanical fall when the wheel fell off her walker. They suspect that this was 15 minutes prior to the arrival of her daughter. I obtained basic laboratory work and she has normal white count of 8.5 with hemoglobin 11.1, electrolyte panel is significant for chloride of 109 which I think is nonspecific, glucose 107, anion gap low at 3. Given her facial fractures and her reported seizure, I discussed the patient with Dr. Bond at [facility]. She will be transferred for trauma consultation. Patient is in stable condition. Lab Data Labs: Laboratory Results - last 24 hr 08/26/23 15:17 WBC 8.5 RBC 3.75 L Hgb 11.1 L Hct 33.2 L MCV 88.5 MCH 29.6 MCHC 33.4 RDW Std Deviation 40.8 RDW Coeff of Ata 12.6 Plt Count 188 MPV 9.4 Immature Gran % (Auto) 0.400 Neut % (Auto) 62.5 Lymph % (Auto) 27.9 [place] % (Auto) 6.6 Eos % (Auto) 2.0 Baso % (Auto) 0.6 Absolute Neuts (auto) 5.4 Absolute Lymphs (auto) 2.38 Nucleated RBC % 0 PT 14.3 INR 1.1 APTT 31.6 Sodium 141 Potassium 4.0 Chloride 109 H Carbon Dioxide 29.0 Anion Gap 3 L BUN 12 Creatinine 0.66 Est GFR (MDRD) Af Amer 120 Est GFR (MDRD) Non-Af 99 BUN/Creatinine Ratio 18.3 Glucose 107 H Calcium 8.8 Total Bilirubin 0.40 AST 16 ALT 16 Alkaline Phosphatase 79 Total Protein 6.1 L Albumin 3.4 Globulin 2.7 Albumin/Globulin Ratio 1.3 Radiography Diagnostic Testing: Clinical Impression(s) from Imaging Studies Brain CT 08/26/23 14:10 IMPRESSION: Chronic involutional changes of the brain. Depressed fracture of the lateral wall of the left maxillary sinus with air-fluid level in the left maxillary sinus and left sphenoid. Comminuted depressed fracture of the left zygomatic arch. Electronically Signed: Fortunato Gutierrez MD at 14:49 EDT , Cervical Spine CT 08/26/23 14:10 IMPRESSION: Air-fluid level seen in the left sphenoid sinus. Cervical spine is unremarkable otherwise. Electronically Signed: Fortunato Gutierrez MD at 15:01 EDT , Chest X-Ray 08/26/23 14:35 IMPRESSION: Hyperinflation. The lungs are clear. Electronically Signed: Fortunato Gutierrez MD at 15:04 EDT , Hip/Pelvis X-Ray 08/26/23 14:35 IMPRESSION: Degenerative changes. No acute fracture is seen. Large amount of fecal material is seen in the colon. Electronically Signed: Fortunato Gutierrez MD at 15:03 EDT , Discharge Plan Triage Chief Complaint: Fall ED Provider: Asa Gong Dx/Rx/DC Orders Clinical Impression: Fall, Fracture of left zygomatic arch, Closed fracture of maxillary sinus, Seizure after head injury Prescriptions: No Action oxybutynin chloride 15 MG tablet extended release 24hr 15 mg PO DAILY Patient Comments: TAKE 1 TABLET BY MOUTH EVERY DAY levothyroxine 25 MCG tablet 25 mcg PO DAILY Patient Comments: TAKE 1 TABLET BY MOUTH EVERY DAY aspirin 81 MG tablet,chewable 81 mg PO DAILY@0800 Qty: 90 0RF docusate sodium 100 MG capsule 100 mg PO BID Qty: 30 0RF Patient Comments: when needed for constipation Tysabri 300 mg/15 mL solution 300 mg IV Q28D Patient Comments: was supposed to get it done 08/26/23 Rx Instructions: administer over 60 mins clonazepam 0.5 mg tablet 0.5 mg PO QHS PRN PRN (Reason: anxiety) Primary Care Provider: Radha Winter NP Referrals: Radha Winter NP, [employer] [Primary Care Provider] - Print Language: Lithuanian Disposition Disposition: Acute Care Hospital Discharge Location: [facility]
[2023-08-26] MEDS: 0.9% Normal Saline (1000mL) 1,000 ML 999 ML IV (14:19)
[2023-08-26 14:35] VITALS: BP 124/79; PULSE 89; RESP 16; O2SAT 99
--- NOTE | 2023-08-26 14:35 | RAD_ITS ---
STUDY: X-RAY - PELVIS AND RIGHT HIP REASON FOR EXAM: Female, 53 years old. Trauma -- Pelvis 2 views TECHNIQUE: 3 views of the pelvis and hip. COMPARISON: None. FINDINGS: Large amount of fecal material is seen in the colon. Normal visualized soft tissue structures. Normal bilateral iliac wings, sacroiliac joints and visualized sacrum. Normal bilateral superior and inferior pubic rami. Normal pubic symphysis. Normal bilateral ischial tuberosities. Normal visualized femoral head. There is osteoarthritic spur formation of the acetabular rim. There is moderate articular joint space narrowing of the hip. RAD/HIP, UNI W/ Pelvis 2-3 Views IMPRESSION: Degenerative changes. No acute fracture is seen. Large amount of fecal material is seen in the colon. Electronically Signed: Fortunato Gutierrez MD at 15:03 EDT ,
--- NOTE | 2023-08-26 14:35 | RAD_ITS ---
STUDY: X-RAY CHEST REASON FOR EXAM: Female, 53 years old. Trauma TECHNIQUE: Single AP portable view of the chest. COMPARISON: Comparison is made with prior study dated January 26, 2019. FINDINGS: EKG electrodes are seen. Hyperinflation. There is no demonstrated pleural abnormality. Normal size heart. Normal mediastinum and julio. Normal visualized pulmonary arteries. Normal visualized aortic arch and descending thoracic aorta. Normal visualized thoracic spine. Normal visualized ribs, clavicles, and shoulders. There is no demonstrated abnormality of the visualized soft tissue structures of the upper abdomen. RAD/Chest 1 View (Portable) IMPRESSION: Hyperinflation. The lungs are clear. Electronically Signed: Fortunato Gutierrez MD at 15:04 EDT ,
[2023-08-26 15:20] VITALS: BP 118/98; PULSE 90; RESP 17; O2SAT 98
[2023-08-26 15:27] LABS: Absolute Lymphocyte Count 2.38 X10^3/uL (0.83-4.51); Absolute Neutrophil Count 5.4 X10^3/uL (2.0-7.7); Basophil# 0.05 X10^3/uL; Basophil% 0.6 % (0-1); Eosinophil# 0.17 X10^3/uL; Hematocrit 33.2 % (37-47); Hemoglobin 11.1 g/dL (12.0-15.0); Lymphocyte # 2.38 X10^3/ul (0.83-4.51); Lymphocyte % 27.9 % (19-41); Mean Corp Hgb Conc 33.4 g/dL (32-36); Mean Corpuscular Hgb 29.6 pg (27.0-32.0); Mean Corpuscular Volume 88.5 fL (81-99); Mean Platelet Vol. 9.4 fl (6.2-12.0); Monocyte# 0.56 X10^3/uL; Monocyte% 6.6 % (0-10); NRBC Flagged by Analyzer 0 % (0-5); Neutrophil # 5.35 X10^3/uL (2.7-7.7); Neutrophil % 62.5 % (47-70); Platelet Count 188 K/mm3 (150-450); RBC Distribution Width CV 12.6 % (11.6-14.6); RBC Distribution Width SD 40.8 fl (35.1-43.9); Red Blood Count 3.75 M/mm3 (4.2-5.4); White Blood Count 8.5 K/mm3 (4.4-11.0)
[2023-08-26 15:41] LABS: International Normalized Ratio 1.1; Prothrombin Time (Protime)PT. 14.3 SECONDS (11.7-14.9)
[2023-08-26 15:42] LABS: Partial Thromboplast Time 31.6 Seconds (24.1-36.2)
[2023-08-26 15:46] LABS: ALB/GLOB Ratio 1.3 RATIO (0.9-2.4); AST(SGOT) 16 U/L (15-37); Alanine Aminotransfer ALT/SGPT 16 U/L (13-56); Albumin, Serum 3.4 g/dL (3.2-5.0); Alkaline Phosphatase 79 U/L (45-117); Anion Gap 3 (5-15); BUN 12 mg/dL (7-18); BUN/Creat Ratio 18.3 RATIO (10-20); Calcium,Total 8.8 mg/dL (8.5-10.1); Chloride 109 mmol/L (98-107); Creatinine, Serum 0.66 mg/dL (0.55-1.02); EST Glomerular Filtration Rate 99 mL/min (>60); Est Glom Filt Rate - Afr Amer 120 mL/min (>60); Globulin 2.7 g/dL (2.2-4.2); Glucose 107 mg/dL (74-106); Protein, Total 6.1 g/dL (6.4-8.2); Sodium Level 141 mmol/L (136-145)
[2023-08-26 16:05] VITALS: BP 110/59; PULSE 85; RESP 16; O2SAT 99
--- NOTE | 2023-08-26 16:32 | NURSING ---
CALLED [facility] FOR TRANSFER
--- NOTE | 2023-08-26 16:42 | NURSING ---
ACCEPTED AT [facility] VIA ED REPORT [phone]
--- NOTE | 2023-08-26 16:55 | NURSING ---
[facility] WITHIN THE HOUR
[2023-08-26 17:17] VITALS: BP 106/67; PULSE 82; RESP 17; O2SAT 99
[2023-08-26] MEDS: Acetaminophen 325 MG Tablet 650 MG PO (17:21)
[2023-08-26 17:34] VITALS: BP 106/67; PULSE 87; RESP 18; TEMP 36.7; O2SAT 99
--- NOTE | 2023-08-26 17:43 | NURSING ---
Report given to [facility] via phone.
== END 2023-08-26 17:38 | disposition short-term general hospital (02) ==
PROVIDERS: Emergency Provider Emergency Medicine; PCP Nurse Practitioner Primary Care; Visit Provider Emergency Medicine
DX: S09.90XA Unspecified injury of head, initial encounter (principal); R56.9 Unspecified convulsions; S02.40FA Zygomatic fracture, left side, initial encounter for closed fracture; S02.40DA Maxillary fracture, left side, initial encounter for closed fracture; W18.39XA Other fall on same level, initial encounter; Y92.009 Unspecified place in unspecified non-institutional (private) residence as the place of occurrence of the external cause
CPT/HCPCS: 70450; 71045; 72125; 73502; 80053; 85025; 85610; 85730; 93005; 96360; 96361; 99285; J7030; A4216

== ENCOUNTER → 2024-06-07 | Outpatient (CLI) | payer SELFPAY, OTHER ==
--- NOTE | 2024-06-07 07:32 | MRI_ITS ---
PROCEDURE: BRAIN W/WO CONTRAST 06/07/2024 REASON FOR EXAM: MS TECHNIQUE: Brain MRI without and with intravenous contrast with additional dedicated imaging of the IACs. Multiplanar and multisequence images were obtained. CONTRAST: with COMPARISON: None FINDINGS: Bilateral cerebral periventricular and subcortical as well as thalamic and corpus callosum patches of iso to hypointense T 1 and high T2/FLAIR signa, most of them seen arranged perpendicular to the ventricular long axis. No obvious enhancement. No obvious cerebellar or brain stem areas of altered signal. No intracerebral or extra-axial hematomas or enhancing masses. No hyperacute or acute infarctions could be depicted. Prominent ventricular system, cortical sulci and extra-axial CSF spaces. No shift of midline structures. Normal MRI appearance of the petrous temporal bones and cerebellopontine angles with no obvious masses. Normal MRI appearance of orbital structures, both globes, optic nerves, optic chiasm, optic tracts and optic radiations. Scanned paranasal sinuses are unremarkable MRI/Brain W/WO Contrast IMPRESSION: Bilateral cerebral and callosal patches of altered signal as detailed, possibly demyelinating with no active plaques. Mild brain atrophic changes Reading Location: [place] [id number]
== END | disposition home or self-care (01) ==
PROVIDERS: PCP Nurse Practitioner Primary Care; Referring Provider Internal Medicine; Visit Provider Internal Medicine
DX: G35 Multiple sclerosis (principal)
CPT/HCPCS: 70553; A9575

== ENCOUNTER 2024-06-21 18:39 | Inpatient (IN) | payer OTHER, SELFPAY ==
[2024-06-21] VITALS (15 sets, daily range): BP systolic 92–152; BP diastolic 67–98; PULSE 73–115; RESP 11–18; TEMP 33.4–37; O2SAT 94–100; BMI 20.2; BMI 20.5; BMI 19.3
--- NOTE | 2024-06-21 18:44 | EKG12_ITS ---
Test Reason : STROKE ALERT Blood Pressure : */* mmHG Vent. Rate : 78 BPM Atrial Rate : 78 BPM P-R Int : 140 ms QRS Dur : 92 ms QT Int : 424 ms P-R-T Axes : 82 68 72 degrees QTcB Int : 483 ms Normal sinus rhythm Prolonged QT Abnormal ECG Confirmed by Abel Mauricio ([id number]), assignment desk editor GROVER FRANCISCO ([id number]) on 06/25/2024 11:55:56 AM Referred By: Hamlet Olson Confirmed By: Abel Mauricio
--- NOTE | 2024-06-21 18:50 | CT_ITS ---
PROCEDURE: STROKE CTA HEAD AND NECK W/CON 06/21/2024 REASON FOR EXAM: NEURO DEFICIT, ACUTE, STROKE SUSPECTED TECHNIQUE: CTA imaging of the head and neck from the aortic arch to the skull vertex with out contrast and with intravenous contrast. Multiplanar and multisequence images were obtained. CONTRAST: Isovue 370 VOLUME: 75 mL One or more dose reduction techniques were used (e.g., Automated exposure control, adjustment of the mA and/or kV according to patient size, use of iterative reconstruction technique). RADIATION DOSE SUMMARY: DLP: 620.35 mGycm COMPARISON: Earlier CT brain dated 06/21/2024 FINDINGS: Aortic Arch: Unremarkable. Brachiocephalic and Subclavians: Normal. RIGHT Carotid: Right CCA: No critical stenoses. Right ICA: No critical stenoses are ulcerations. Right ECA: Unremarkable. LEFT Carotid: Left CCA: No critical stenoses. Left ICA: No critical stenoses or ulcerations. Left ECA: Unremarkable. Vertebrals: Dominant left. RIGHT Vertebral: Unremarkable. LEFT Vertebral: Unremarkable. Anatomy: Aneurysm or arteriovenous malformation: Not present. Anterior cerebral arteries: Normal. Middle cerebral arteries: Normal. Basilar artery: Normal. Posterior cerebral arteries: Normal. Other major branches of the posterior circulation: Unremarkable. Major venous structures: Unremarkable. Other findings: Neck: Unremarkable. Lungs: No abnormalities. Bones: No osseous abnormalities. No intracranial CT/STROKE CTA Head AND Neck W/Con IMPRESSION: No intracranial vascular abnormalities are demonstrated. No other significant findings. Reading Location: [facility]
--- NOTE | 2024-06-21 18:50 | CT_ITS ---
PROCEDURE: STROKE BRAIN/HEAD WITHOUT CONT 06/21/2024 REASON FOR EXAM: NEURO DEFICIT, ACUTE, STROKE SUSPECTED TECHNIQUE: Contiguous axial scans of 3.75 mm slice thicknesses with sagittal and coronal reconstruction images. One or more dose reduction techniques were utilized (e.g., automated exposure control, adjustment of mA and/or kv according to patient size, use of iterative reconstruction technique). RADIATION DOSE SUMMARY: DLP: 829.85 mGycm COMPARISON: MR dated 06/07/2024. FINDINGS: Cerebrum: No intraparenchymal hemorrhage. No abnormal areas of encephalomalacia. No mass effect or midline shift. Nieves-white matter differentiation is normal. Ventricles and cisterns: Appropriate size for patient's age. Extra-axial fluid: Unremarkable. Posterior fossa: Unremarkable cerebellum. No abnormalities involving the brainstem. Paranasal sinuses: Normal. Vasculature: Unremarkable. Mastoid air cells: unremarkable. Calvarium: Unremarkable. Soft tissues: Unremarkable. . CT/STROKE Brain/Head without Cont IMPRESSION: No acute intracranial abnormalities are demonstrated. Reading Location: [facility]
[2024-06-21 19:13] LABS: Absolute Lymphocyte Count 3.32 X10^3/uL (0.83-4.51); Absolute Neutrophil Count 3.2 X10^3/uL (2.0-7.7); Basophil# 0.09 X10^3/uL; Basophil% 1.2 % (0-1); Eosinophil# 0.13 X10^3/uL; Eosinophils% 1.7 % (0-5); Hematocrit 37.7 % (37-47); Hemoglobin 12.7 g/dL (12.0-15.0); Lymphocyte # 3.32 X10^3/ul (0.83-4.51); Lymphocyte % 44.4 % (19-41); Mean Corp Hgb Conc 33.7 g/dL (32-36); Mean Corpuscular Hgb 29.8 pg (27.0-32.0); Mean Corpuscular Volume 88.5 fL (81-99); Mean Platelet Vol. 8.9 fl (6.2-12.0); Monocyte# 0.61 X10^3/uL; Monocyte% 8.2 % (0-10); NRBC Flagged by Analyzer 0.5 % (0-5); Neutrophil # 3.24 X10^3/uL (2.7-7.7); Neutrophil % 43.4 % (47-70); POSITIVE MORPHOLOGY YES; Platelet Count 295 K/mm3 (150-450); RBC Distribution Width CV 13.2 % (11.6-14.6); RBC Distribution Width SD 42.5 fl (35.1-43.9); Red Blood Count 4.26 M/mm3 (4.2-5.4); White Blood Count 7.5 K/mm3 (4.4-11.0)
--- NOTE | 2024-06-21 19:18 | ED.RN ---
STROKE ALERT CANCELLED AT [address] LANDAVERDE.
[2024-06-21 19:24] LABS: AST(SGOT) 27 U/L (<=31); Alanine Aminotransfer ALT/SGPT 26 U/L (<=34); Albumin, Serum 4.1 g/dL (3.5-5.0); Alkaline Phosphatase 122 U/L (35-104); Anion Gap 8 (5-15); BUN 14 mg/dL (4-19); BUN/Creat Ratio 23.1 RATIO (10-20); Bilirubin, Direct 0.09 mg/dL (0.00-0.30); Calcium,Total 9.6 mg/dL (7.6-11.0); Carbon Dioxide 29.9 mmol/L (21.0-32.0); Chloride 100 mmol/L (98-108); Creatinine, Serum 0.59 mg/dL (0.70-1.20); EST Glomerular Filtration Rate 106 (>60); Estimated Creatinine Clearance 88.07 ml/min (50-250); Glucose 96 mg/dL (70-99); Potassium 4.2 mmol/L (3.3-5.1); Protein, Total 7.1 g/dL (5.9-8.4); Sodium Level 137 mmol/L (133-145); Total Bilirubin 0.19 mg/dL (0.00-1.30)
[2024-06-21 19:25] LABS: International Normalized Ratio 0.9; Prothrombin Time (Protime)PT. 12.7 SECONDS (11.7-14.9)
[2024-06-21 19:25] LABS: Lactic Acid < 1.0 mmol/L (0.0-2.0)
[2024-06-21 19:26] LABS: Partial Thromboplast Time 35.1 Seconds (24.1-36.2)
[2024-06-21 19:34] LABS: Differential Indicated SCAN CRITERIA MET
--- NOTE | 2024-06-21 19:40 | RAD_ITS ---
PROCEDURE: CHEST 1 VIEW 06/21/2024 REASON FOR EXAM: NEURO DEFICIT, ACUTE, STROKE SUSPECTED TECHNIQUE: Frontal view of the chest. COMPARISON: 08/26/2023 FINDINGS: Lungs: Lungs clear of pneumonia and congestion. Pleura: No pleural effusions, thickening, or pneumothorax. Heart: Normal in size and configuration. Mediastinum/Nicole: Unremarkable. Great vessels: Unremarkable. Bones/soft tissues: Unremarkable. Cardiac monitoring leads overlie the chest wall. RAD/Chest 1 View IMPRESSION: No active cardiopulmonary disease.. Reading Location: [facility]
[2024-06-21 19:41] LABS: Troponin T High Sensitivity 13 ng/L (<=14)
[2024-06-21] MEDS: levETIRAcetam IV 2,000 MG in 0.9% Normal Saline (250mL Bag) 230 ML 1000 MG IV (19:42)
[2024-06-21 19:45] LABS: Bacteria 0 SEEN /hpf (None Seen); Mucous, Urine 0 SEEN /hpf (<or=2+)
[2024-06-21 19:52] LABS: Color, Urine Straw (Yellow); Glucose, Dipstick Normal (Normal); Ketone-Dipstick Negative (Negative); Leukocyte Esterase-Dipstick Negative /ul (Negative); Nitrite-Dipstick Negative (Negative); Occult Blood-Urine Negative /ul (Negative); Protein-Dipstick Negative (Negative); Urine Bilirubin Dipstick Negative (Negative); Urine Clarity Clear (Clear); Urine Urobilinogen Normal (Normal)
[2024-06-21 20:22] LABS: Platelet Estimate ADEQUATE (ADEQ)
--- NOTE | 2024-06-21 21:11 | EDS_ITS ---
HPI History of Present Illness Chief Complaint: Stroke Alert Informant: spouse/S.O. and EMS Narrative Narrative: 54-year-old female presenting to the emergency department as prehospital stroke alert. states that she was treated for a UTI last week. Over the past couple days he states that she has seemed more confused asking why she is taken the antibiotic. However she otherwise seems to be doing well. She has a history of MS (follows at the [facility] in [place]). She had an intracranial hemorrhage following trauma last year and had a seizure at that timehad a seizure since. states that he was mowing the lawn and came inside and found her slumped on her rollator. He states that she tried to speak with him and it seemed that the right side of her face may have been drooping. EMS arrived. They stated that en route to the hospital she had a generalized seizure and they gave her Versed. [facility] Medical History (Updated 06/21/24 @ 21:[address] Hamlet Olson DO) Spastic Anxiety Multiple sclerosis Home Medications ?Medication ?Instructions ?Recorded ?Last Taken ?Type levothyroxine 25 mcg tablet 25 mcg PO DAILY 01/26/19 1 03/29/18 History clonazepam 0.5 mg tablet 0.5 mg PO QHS PRN PRN anxiet y 08/26/23 Unknown History natalizumab 300 mg/15 mL 300 mg IV Q28D 08/26/23 Unkn own History intravenous solution (Tysabri) cephalexin 500 mg capsule 500 mg PO Q12.TCU 06/21/24 U nknown History cholecalciferol (vitamin D3) 50 50 mcg PO QDAY 5 Unknown History mcg (2,000 unit) capsule oxybutynin chloride 10 mg 10 mg PO DAILY 06/21/24 Unkn own History tablet,extended release 24 hr Allergy/AdvReac Type Severity Reaction Status Date / Time No Known Allergies Allergy Verified 06/21/24 18:45 Social History household members: spouse housing: house Smoking Status: Never smoker EXAM Physical Exam Const Vital Signs: 06/21/24 18:40 06/21/24 18:58 06/21/24 19:30 Temperature 98.6 F Temperature Source Oral Pulse Rate 115 H 77 Respiratory Rate 18 12 Blood Pressure 152/98 H 113/76 Blood Pressure Mean 116 88 Pulse Ox 94 100 99 Oxygen Delivery Method Room Air Non-Rebreather Non-Rebreather Oxygen Flow Rate (L/min) 10 15 06/21/24 20:00 06/21/24 21:00 06/21/24 21:00 Temperature 92.1 F L Temperature Source Pulse Rate 74 73 73 Respiratory Rate 12 14 14 Blood Pressure 122/82 H 119/73 119/73 Blood Pressure Mean 95 88 88 Pulse Ox 100 100 100 Oxygen Delivery Method Non-Rebreather Non-Rebreather Oxygen Flow Rate (L/min) 15 15 06/21/24 21:23 Temperature 92.1 F L Temperature Source Core Pulse Rate 73 Respiratory Rate 12 Blood Pressure 119/73 Blood Pressure Mean 88 Pulse Ox 100 Oxygen Delivery Method Non-Rebreather Oxygen Flow Rate (L/min) 15 Positive well nourished and well developed General Appearance ED: well developed and NAD HEENT Reports normocephalic, head/scalp atraumatic and moist mucous membranes Eyes PERRL Eyes Narrative: Pupils are 5-3 bilaterally Neck no lymphadenopathy, supple and no JVD Resp normal respiratory effort and clear to auscultation bilaterally Cardio regular rate, regular rhythm and no murmurs GI normal to inspection, nondistended, normoactive bowel sounds and non-tender Palpation: soft Extremity normal to inspection General Extremety ED: Negative for edema General Extremity: Negative for edema Neuro Neuro Narrative: Patient is sedated. She withdraws from pain Psych Mood & Affect: tearful Skin no rashes or lesions noted Skin Narrative: Superficial abrasion right forearm MDM MDM MDM Narrative Medical decision making narrative: Differential diagnosis includes but not limited to stroke seizure sedation UTI sepsis dissection cardiac dysrhythmia ACS Patient was taken from the ambulance bay directly to the CT scanner where a head CT and a CTA of head and neck was obtained. These do not show acute findings. Patient has remained sedated but is starting to move all of her extremities. She was able to squeeze her 's hand and start to open her eyes. She has progressively become hypothermic and we applied [place] hugger. Shepherd catheter was placed which does not demonstrate UTI. Blood work rather unremarkable lactic acid less than 1. Creatinine 0.59 normal electrolytes white count 7.5 troponin is 14 EKG is nonischemic my independent interpretation of the chest x-ray is no acute process. Patient was seen by [facility] neurology. We administered 2 Keppra. Plan of care is admission into the ICU. I do not believe that thrombolytics are indicated at this time. We cannot perform a proper NIH due to the mental status of the patient. I do not see an LVO. This is discussed with family who notes understanding of the risk benefits. History & Record Review Discussion w/independent historian: EMS personnel and Family Lab Data Attestation: I reviewed the patient's lab results. Labs: Laboratory Results - last 24 hr 06/21/24 06/21/24 06/21/24 17:27 18:30 18:55 WBC 7.5 RBC 4.26 Hgb 12.7 Hct 37.7 MCV 88.5 MCH 29.8 MCHC 33.7 RDW Std Deviation 42.5 RDW Coeff of Ata 13.2 Plt Count 295 MPV 8.9 Immature Gran % (Auto) 1.100 H Neut % (Auto) 43.4 L Lymph % (Auto) 44.4 H [place] % (Auto) 8.2 Eos % (Auto) 1.7 Baso % (Auto) 1.2 H Absolute Neuts (auto) 3.2 Absolute Lymphs (auto) 3.32 Nucleated RBC % 0.5 Platelet Estimate ADEQUATE PT 12.7 INR 0.9 APTT 35.1 Sodium 137 Potassium 4.2 Chloride 100 Carbon Dioxide 29.9 Anion Gap 8 BUN 14 Creatinine 0.59 L Estim Creat Clear Calc 88.07 Est GFR (MDRD) Non-Af 106 BUN/Creatinine Ratio 23.1 H Glucose 96 Hemoglobin A1c 5.3 Lactic Acid < 1.0 Calcium 9.6 Total Bilirubin 0.19 Direct Bilirubin 0.09 AST 27 ALT 26 Alkaline Phosphatase 122 H Troponin T High Sens 13 Troponin T Hi Sens 2 Hr Total Protein 7.1 Albumin 4.1 Globulin 3.0 Urine Color Straw Urine Clarity Clear Urine pH 7.0 Ur Specific [place] 1.010 Urine Protein Negative Urine Glucose (UA) Normal Urine Ketones Negative Urine Occult Blood Negative Urine Nitrite Negative Urine Bilirubin Negative Urine Urobilinogen Normal Ur Leukocyte Esterase Negative Urine RBC 0-5 SEEN Urine WBC 0-5 SEEN Ur Squamous Epith Cells 0-5 SEEN Urine Bacteria 0 SEEN Urine Mucus 0 SEEN 06/21/24 20:36 WBC RBC Hgb Hct MCV MCH MCHC RDW Std Deviation RDW Coeff of Ata Plt Count MPV Immature Gran % (Auto) Neut % (Auto) Lymph % (Auto) [place] % (Auto) Eos % (Auto) Baso % (Auto) Absolute Neuts (auto) Absolute Lymphs (auto) Nucleated RBC % Platelet Estimate PT INR APTT Sodium Potassium Chloride Carbon Dioxide Anion Gap BUN Creatinine Estim Creat Clear Calc Est GFR (MDRD) Non-Af BUN/Creatinine Ratio Glucose Hemoglobin A1c Lactic Acid Calcium Total Bilirubin Direct Bilirubin AST ALT Alkaline Phosphatase Troponin T High Sens Troponin T Hi Sens 2 Hr 14 Total Protein Albumin Globulin Urine Color Urine Clarity Urine pH Ur Specific [place] Urine Protein Urine Glucose (UA) Urine Ketones Urine Occult Blood Urine Nitrite Urine Bilirubin Urine Urobilinogen Ur Leukocyte Esterase Urine RBC Urine WBC Ur Squamous Epith Cells Urine Bacteria Urine Mucus Radiography Diagnostic Testing: Clinical Impression(s) from Imaging Studies Brain CT 06/21/24 18:50 IMPRESSION: No acute intracranial abnormalities are demonstrated. Reading Location: [facility] Head/Neck CTA 06/21/24 18:50 IMPRESSION: No intracranial vascular abnormalities are demonstrated. No other significant findings. Reading Location: [facility] Chest X-Ray 06/21/24 19:40 IMPRESSION: No active cardiopulmonary disease.. Reading Location: [facility] EKG Initial EKG: Attestation: I personally reviewed and interpreted this EKG as follows: Comments: Normal sinus rhythm ventricular to 78 bpm. Management Discussion w/another healthcare provider: Hospitalist (Dr Olson) and Nail Feeder ([facility]) Discharge Plan Dx/Rx/DC Orders Clinical Impression: Seizure, AMS (altered mental status) Disposition Disposition: Acute Care Hospital [facility] Discharge Date/Time: 06/21/24 22:51
--- NOTE | 2024-06-21 21:13 | PCM.HP.STD ---
HPI - General General Date of Admission: 06/21/24 Date of Service: 06/21/24 Chief Complaint: Unresponsive with Right Facial Droop and Seizure. HPI Narrative ADELAIDA JOVEL, is a 54 F with a past medical history of multiple sclerosis; on natalizumab followed at the [facility] in [place], hypothyroidism; on levothyroxine, anxiety; on clonazepam qhs prn, OAB; on oxybutynin, history of fall; with maxillary fracture, small SAH and seizure (2023) and recently diagnosed UTI; on cephalexin for the past few days who presents to [facility] ER with her complaining of patient being unresponsive with Right facial droop and seizure. Mrs. Jovel is not a fully-reliable historian at this time since she was treated with versed 4 mg IV once by EMS so information was gathered from chart, medical staff and computer. According to the record she was last known well around 5:00 PM when her came in from mowing the lawn and found her unresponsive with her eyes rolled back and unable to talk she was slumped over her rollator. Her also thought he noticed a Right facial droop so he activated EMS. When the squad arrived she had a witnessed tonic-clonic seizure for which she was treated with IV versed. Her also noticed she was having 'scattered thoughts' intermittently for the past few days with patient confused as to why she was taking an antibiotic but she seemed to be okay until this evening. Her denies seizures since last year after her fall. She was then evaluated by [facility] teleneurology and suspected to have a seizure with postictal confusion and lethargy rather than CVA with patient having Brain CT revealed no acute intracranial abnormalities followed by CTA of the head and neck with IV contrast that revealed no acute intracranial vascular abnormalities or other significant findings. She was then loaded with IV levetiracetam and the hospitalist service was called to complete her CVA evaluation. Shortly after admission she developed Hypothermia of 92.1 ?F and hypotension of 78/61 mmHg consistent with suspected Sepsis of unknown origin and she was then admitted to the ICU for stay that is expected to extend beyond 2 midnights. [facility] Medical History (Updated 06/22/24 @ 05:[address] Hamlet Olson DO) Spastic Anxiety Multiple sclerosis Home Medications ?Medication ?Instructions ?Recorded ?Last Taken ?Type levothyroxine 25 mcg tablet 25 mcg PO DAILY 01/26/19 01/26/19 History clonazepam 0.5 mg tablet 0.5 mg PO QHS PRN PRN anxiety 08/26/23 Unknown History natalizumab 300 mg/15 mL 300 mg IV Q28D 08/26/23 Unknown History intravenous solution (Tysabri) cephalexin 500 mg capsule 500 mg PO Q12.TCU 06/21/24 Unknown History cholecalciferol (vitamin D3) 50 50 mcg PO QDAY 06/21/24 Unknown History mcg (2,000 unit) capsule oxybutynin chloride 10 mg 10 mg PO DAILY 06/21/24 Unknown History tablet,extended release 24 hr Allergy/AdvReac Type Severity Reaction Status Date / Time No Known Allergies Allergy Verified 06/21/24 18:45 Social History household members: spouse housing: house Smoking Status: Never smoker ROS ROS Narrative Full review of systems was not possible due to patient's recent treatment with Versed and postictal state after recent witnessed tonic-clonic seizure. Vital Signs Vital Signs Vital Signs: 06/21/24 18:40 06/21/24 18:58 06/21/24 19:30 Temperature 98.6 F Temperature Source Oral Pulse Rate 115 H 77 Respiratory Rate 18 12 Blood Pressure 152/98 H 113/76 Blood Pressure Mean 116 88 Pulse Ox 94 100 99 Oxygen Delivery Method Room Air Non-Rebreather Non-Rebreather Oxygen Flow Rate (L/min) 10 15 06/21/24 20:00 Temperature Temperature Source Pulse Rate 74 Respiratory Rate 12 Blood Pressure 122/82 H Blood Pressure Mean 95 Pulse Ox 100 Oxygen Delivery Method Non-Rebreather Oxygen Flow Rate (L/min) 15 Weight Weight: 116 lb 2.938 oz Body Mass Index (BMI) 20.5 Physical Exam Const no apparent distress and average body habitus Constitutional Narrative: Patient is sedated after Versed. Orientation / Consciousness: lethargic HEENT normocephalic, head/scalp atraumatic, hearing grossly normal bilaterally and moist oral mucous membranes Eyes PERRL, EOMs intact bilaterally and conjunctivae normal Neck no lymphadenopathy, supple and no JVD Resp normal respiratory effort, no retractions, no use of accessory muscles and clear to auscultation bilaterally Cardio regular rate and regular rhythm GI normal to inspection, nondistended, normoactive bowel sounds, soft to palpation, non-tender and non-distended Extremity normal to inspection and no clubbing, cyanosis or edema Skin Skin Narrative: Patient has no evidence of rash, abscess, wounds or jaundice. Neuro CN's II-XII intact bilaterally, moves all extremities and no focal motor deficits Neuro Narrative: Patient is sedated after Versed. Psych Psych Narrative: Patient is sedated after Versed. Results Medical Records Data Attestation: I reviewed the patient's medical records Lab / Micro Data Attestation: I reviewed the patient's lab results. 06/21/24 18:30 06/21/24 18:30 Labs: Laboratory Results - last 24 hr 06/21/24 17:27: Urine Color Straw, Urine Clarity Clear, Urine pH 7.0, Ur Specific [place] 1.010, Urine Protein Negative, Urine Glucose (UA) Normal, Urine Ketones Negative, Urine Occult Blood Negative, Urine Nitrite Negative, Urine Bilirubin Negative, Urine Urobilinogen Normal, Ur Leukocyte Esterase Negative 06/21/24 18:30: WBC 7.5, RBC 4.26, Hgb 12.7, Hct 37.7, MCV 88.5, MCH 29.8, MCHC 33.7, RDW Std Deviation 42.5, RDW Coeff of Ata 13.2, Plt Count 295, MPV 8.9, Immature Gran % (Auto) 1.100 H, Neut % (Auto) 43.4 L, Lymph % (Auto) 44.4 H, [place] % (Auto) 8.2, Eos % (Auto) 1.7, Baso % (Auto) 1.2 H, Absolute Neuts (auto) 3.2, Absolute Lymphs (auto) 3.32, Nucleated RBC % 0.5, Platelet Estimate ADEQUATE, PT 12.7, INR 0.9, APTT 35.1, Sodium 137, Potassium 4.2, Chloride 100, Carbon Dioxide 29.9, Anion Gap 8, BUN 14, Creatinine 0.59 L, Estim Creat Clear Calc 88.07, Est GFR (MDRD) Non-Af 106, BUN/Creatinine Ratio 23.1 H, Glucose 96, Calcium 9.6, Total Bilirubin 0.19, Direct Bilirubin 0.09, AST 27, ALT 26, Alkaline Phosphatase 122 H, Troponin T High Sens 13, Total Protein 7.1, Albumin 4.1, Globulin 3.0 06/21/24 18:55: Lactic Acid < 1.0 Imaging Radiology Impression Brain CT 06/21/24 18:50 IMPRESSION: No acute intracranial abnormalities are demonstrated. Reading Location: [facility] Head/Neck CTA 06/21/24 18:50 IMPRESSION: No intracranial vascular abnormalities are demonstrated. No other significant findings. Reading Location: [id number] Chest X-Ray 06/21/24 19:40 IMPRESSION: No active cardiopulmonary disease.. Reading Location: [facility] Imaging Services [address] [place] [address] [id number] Abdomen/Pelvis without Cont MR#: [id number] Acct: [id number] Name: ADELAIDA JOVEL Crystal Rep #: [id number] : 1970 F 54 From: Robert Sarmiento MD PCP: Radha Winter, [facility] Status: ADM IN Study: Abdomen/Pelvis without Cont Date of Exam: 06/22/24 Exam# [id number] Ordering Dr: Hamlet Olson DO PROCEDURE: ABDOMEN/PELVIS WITHOUT CONT 06/22/2024 REASON FOR EXAM: SEPSIS OF UNKNOWN ORIGIN. TECHNIQUE: Abdomen and pelvis CT without intravenous contrast. Noncontrast technique limits evaluation of the abdominal and pelvic viscera. Coronal and Sagittal reconstruction series were provided. One or more dose reduction techniques were used (e.g., Automated exposure control, adjustment of the mA and/or kV according to patient size, use of iterative reconstruction technique). PATIENT PREPARATION: Per protocol ORAL CONTRAST TYPE: None. COMPARISON: 12/20/2019 FINDINGS: Platelike area at the visualized left base may represent atelectasis. Contrast material is seen in the right and left renal collecting system with mjeo-wy-pswslnqe right-sided hydronephrosis. A Shepherd catheter is present within the collapsed bladder. The bladder wall appears diffusely thickened although nonspecific with underdistention, clinically correlate. The liver, adrenal glands, gallbladder, pancreas and spleen appear within limits on noncontrast imaging. No bowel dilation or free air. Jydlwqoq-ga-jkldh amount of ascending and transverse colonic stool. No evidence of colonic wall thickening or pericolonic inflammatory change. The appendix is not definitely identified, no secondary signs. Abdominal aorta appears within limits on noncontrast imaging. The ovaries/adnexa and uterus appear within limits. No free fluid. The visualized osseous structures appear within limits. CT/Abdomen/Pelvis without Cont IMPRESSION: Platelike area at the visualized left base may represent atelectasis. Contrast material is seen in the right and left renal collecting system with onsi-kt-qefayllc right-sided hydronephrosis. A Shepherd catheter is present within the collapsed bladder. The bladder wall appears diffusely thickened although nonspecific with underdistention, clinically correlate. Scsjinki-lk-twasd amount of ascending and transverse colonic stool. No evidence of colonic wall thickening or pericolonic inflammatory change. Reading Location: [id number] CC: CONNER Winter; Dr. Hamlet Olson, DO ~ Multiple Games Dealer: Signed Assessment & Plan Assessment/Plan (1) Seizure: (2) TIA (transient ischemic attack): (3) AMS (altered mental status): QUALIFIERS: Altered mental status type: unspecified Qualified Code(s): R41.82 - Altered mental status, unspecified (4) Multiple sclerosis: (5) Sepsis: QUALIFIERS: Sepsis acute organ dysfunction status: with acute organ dysfunction Sepsis type: sepsis due to unspecified organism Severe sepsis acute organ dysfunction type: unspecified Severe sepsis shock status: with septic shock Qualified Code(s): A41.9 - Sepsis, unspecified organism; R65.21 - Severe sepsis with septic shock (6) Hydronephrosis: QUALIFIERS: Hydronephrosis type: unspecified Qualified Code(s): N13.30 - Unspecified hydronephrosis PLAN: Plan 1. Witnessed tonic-clonic seizure with postictal confusion exacerbated by IV midazolam with AMS and possible TIA with Hypothermia of 92.1 degrees Fahrenheit and Hypotension of 78/61 mmHg noted shortly after admission consistent with suspected Sepsis of unknown origin with negative UA and negative chest x-ray present on admission and CT of the abdomen and pelvis positive for contrast material seen in the right and left renal collecting system with rddv-gc-etbfvgrs Right-sided Hydronephrosis - Admit to ICU. Check MRI of brain with IV contrast to evaluate for evidence of CVA and to assess for flare of MS. Check echocardiogram to evaluate LVEF. Give rectal aspirin plus statin. Continue IV levetiracetam 1 g IV twice daily. Give IV lorazepam as needed for breakthrough seizure activity. Check EEG to evaluate for epileptiform discharges. Continue [place] hugger to achieve normothermia. Place PICC in AM and wean Levophed drip as tolerated. Check TSH, B12, folate, hemoglobin A1c, lipid profile, VONNIE and UDS to evaluate for reversible causes of confusion. Check renal ultrasound to further characterize potential lesion causing Right hydronephrosis. Give acetaminophen LA as needed for pain or fever. Finally, we will consult cost recorder and urologist to see this patient on rounds in the a.m. for further recommendations with the help of above appreciated in advance. 2. Multiple Sclerosis; on natalizumab IV q. 28 days complicating #1 - Check MRI with IV contrast given history of MS to check for objective evidence of flare. 3. Recently diagnosed UTI; on cephalexin for the past few days compounding #1 & #2 - UA negative for infection at this time. 4. History of fall; with maxillary fracture and small SAH and seizure (08/2023) adding to the medical complexity of #1 - #3 - Noted. 5. Hypothyroidism; on levothyroxine - Restart levothyroxine in AM and check TSH. 6. Anxiety; on clonazepam qhs prn - Hold additional benzodiazepines at this time to allow sensorium to clear. 7. OAB; on oxybutynin - Restart this agent when patient can safely tolerate oral intake. 8. DVT prophylaxis - Heparin 5,000U sq BID plus SCD's. Total time: Approximately (but not less than) 75 minutes. Sepsis Attestation Sepsis Alert: Yes Sepsis Attestation: Agree w/Sepsis Date exam was performed: 06/22/24 Time exam was performed: 01:45 Possible Source of Sepsis: Unknown Sepsis Organ Dysfunction Criteria Present: SBP < 90 mmHg or MAP < 65 mmHg and New/Unexplained change in mental status Fluid Resuscitation Fluid resuscitation indicated?: Yes Fluid Resuscitation ordered: 30 ml/kg fluid bolus ordered Amount of fluid ordered: 2 Reason for lesser fluid bolus:: Concern for fluid overload Sepsis Note Date exam was performed: 06/22/24 Time exam was performed: 05:30 Sepsis Attestation: Sepsis re-evaluation was performed Response to fluids: Non Fluid responsive hypotension and Vasopressors started Charges/Coding Visit Charges Inpatient E&M: 48080 Init Hosp L3
[2024-06-21 21:18] LABS: Troponin T High Sens 2 HR 14 ng/L (<=14)
[2024-06-21 21:29] LABS: Red Blood Cells-Urine 0-5 SEEN /hpf (0-5); Squamous Epithelial Cells - UA 0-5 SEEN /hpf (5-10); White Blood Cells 0-5 SEEN /hpf (0-5)
--- NOTE | 2024-06-21 21:44 | ECHOD_ITS ---
Reason For Study Reason For Study: TIA/CVA Procedure This was a 2D Doppler, Color Flow transthoracic echocardiogram. Technically difficult study, patient scanned supine due to condition. Exam performed portable in ICU/CCU. Left Ventricle Normal size and thickness. The LV systolic function is normal. EF is 65 %. Normal diastololic function. Right Ventricle Normal right ventricle. Atria The left and right atria are normal. No bubble study performed. Mitral Valve Trivial mitral valve insufficiency. Tricuspid Valve Trivial tricuspid valve insufficiency. Normal pulmonary artery pressure. Aortic Valve Trisinus/trileaflet aortic valve. Pulmonic Valve The pulmonic valve is not well visualized. Great Vessels The aortic root is not well visualized. Pericardium/Pleural No pericardial effusion. MMode/2D Measurements & Calculations LVIDd: 4.1 cm IVSd: 0.82 cm LAV(MOD- bp): 15.5 ml LVIDs: 2.5 cm LVPWd: 0.87 cm LAV(MOD- bp) Indexed: 10.2 ml/m2 FS: 39.1 % LAV(MOD- sp2): 11.8 ml LAV(MOD- sp4): 18.2 ml SV(MOD-sp4): 36.8 ml SV(sp4- el): 35.6 ml LVAd ap4: 20.1 cm2 LVLd ap4: 6.5 cm SI(MOD-sp4): 24.4 ml/m2 EDV(MOD-sp4): 53.4 ml EDV(sp4-el): 52.5 ml LVAs ap4: 9.5 cm2 LVLs ap4: 4.5 cm ESV(MOD-sp4): 16.5 ml ESV(sp4-el): 16.9 ml EF(MOD-sp4): 69.0 % EF(sp4-el): 67.9 % LA A4 area: 9.6 cm2 RA A4 area: 6.9 cm2 TAPSE: 2.1 cm Time Measurements MV dec time: 0.18 sec Doppler Measurements & Calculations MV E max ron: 74.1 cm/sec Lat Peak E' Ron: 15.1 cm/sec Med Peak E' Ron: 13.7 cm/sec MV A max ron: 55.0 cm/sec E/E' lat: 4.9 E/E' med: 5.4 MV E/A: 1.3 MV V2 max: 104.8 cm/sec MV P1/2t max ron: 104.8 cm/sec Ao V2 max: 123.9 cm/sec MV max P.4 mmHg MV P1/2t: 61.6 msec Ao max P.1 mmHg MV V2 mean: 56.4 cm/sec MV dec slope: 498.2 cm/sec2 Ao V2 mean: 83.2 cm/sec MV mean P.5 mmHg MVA(P1/2t): 3.6 cm2 Ao mean P.1 mmHg MV V2 VTI: 18.5 cm Ao V2 VTI: 28.3 cm AV (velocity ratio): 0.76 LV V1 max: 81.3 cm/sec TR max ron: 206.9 cm/sec LV V1 max P.6 mmHg TR max P.1 mmHg LV V1 mean P.6 mmHg LV V1 mean: 59.4 cm/sec LV V1 VTI: 21.3 cm ECHO/Echo Complete Interpretation Summary The LV systolic function is normal. EF is 65 %. Ordering Physician: Hamlet Olson Referring Physician: Hamlet Olson Performed By: Rafi Snow RCS
--- NOTE | 2024-06-21 22:42 | CM.ED ---
Social Work Reason for visit: Stroke alert SW met with patients while patient was in imaging. stated patient had been a little more confused over last several days and today he came inside to find her sitting on her walker with her head back and not speaking. stated he immediately called 911. Emotional support provided. Patients older son also arrived shortly after patient arrived in the ED. Talisha Snowden, PLATE PAINTER APPRENTICE, COST REPORT CLERK
[2024-06-21 23:06] LABS: Troponin T High Sens 4 HR 14 ng/L (<=14)
[2024-06-21 23:30] LABS: Hemoglobin A1c 5.3 % (<=5.6)
[2024-06-21] MEDS: 0.9% Saline Lock 10 ML Syringe IV (23:38)
[2024-06-21] MEDS: 0.9% Normal Saline (1000mL) 1,000 ML 70 ML IV (23:38)
[2024-06-21] MEDS: Aspirin 300 MG Suppository RC (23:38)
[2024-06-21] MEDS: Heparin Injection (Vial) 5,000 UNIT/ML VIAL 5000 UNIT SC (23:38)
[2024-06-22] VITALS (55 sets, daily range): BP systolic 75–111; BP diastolic 52–83; PULSE 71–89; RESP 11–20; TEMP 34.2–35.9; O2SAT 98–100; BMI 19.3; BMI 19.9
[2024-06-22 00:53] LABS: Alcohol, Blood (Medical)-Serum < 10.1 mg/dL (<=10.0)
[2024-06-22 01:12] LABS: Vitamin B12 841 pg/mL (180-914)
--- NOTE | 2024-06-22 01:38 | CT_ITS ---
PROCEDURE: ABDOMEN/PELVIS WITHOUT CONT 06/22/2024 REASON FOR EXAM: SEPSIS OF UNKNOWN ORIGIN. TECHNIQUE: Abdomen and pelvis CT without intravenous contrast. Noncontrast technique limits evaluation of the abdominal and pelvic viscera. Coronal and Sagittal reconstruction series were provided. One or more dose reduction techniques were used (e.g., Automated exposure control, adjustment of the mA and/or kV according to patient size, use of iterative reconstruction technique). PATIENT PREPARATION: Per protocol ORAL CONTRAST TYPE: None. COMPARISON: 12/20/2019 FINDINGS: Platelike area at the visualized left base may represent atelectasis. Contrast material is seen in the right and left renal collecting system with sdau-ga-gqkauuef right-sided hydronephrosis. A Shepherd catheter is present within the collapsed bladder. The bladder wall appears diffusely thickened although nonspecific with underdistention, clinically correlate. The liver, adrenal glands, gallbladder, pancreas and spleen appear within limits on noncontrast imaging. No bowel dilation or free air. Bxflhwvh-wz-ezkjj amount of ascending and transverse colonic stool. No evidence of colonic wall thickening or pericolonic inflammatory change. The appendix is not definitely identified, no secondary signs. Abdominal aorta appears within limits on noncontrast imaging. The ovaries/adnexa and uterus appear within limits. No free fluid. The visualized osseous structures appear within limits. CT/Abdomen/Pelvis without Cont IMPRESSION: Platelike area at the visualized left base may represent atelectasis. Contrast material is seen in the right and left renal collecting system with mi mt-jr-wqdbayjh right-sided hydronephrosis. A Shepherd catheter is present within the collapsed bladder. The bladder wall aidan ears diffusely thickened although nonspecific with underdistention, clinically correlate. Qcowghde-ji-yudem amount of ascending and transverse colonic stool. No evidence of colonic wall thickening or pericolonic inflammatory change. Reading Location: [id number]
[2024-06-22] MEDS: 0.9% Normal Saline (1000mL) 1,000 ML 999 ML IV ×2 (01:40→03:00)
[2024-06-22] MEDS: Piperacil/Tazobactam 3.375 GM in 0.9% Normal Saline (50mL MB+) 50 ML IV ×3 (02:23→21:41)
[2024-06-22 02:56] LABS: Lactic Acid < 1.0 mmol/L (0.0-2.0)
[2024-06-22 03:08] LABS: Amphetamine Urine NEGATIVE (<1000 ng/mL); Barbiturate Urine NEGATIVE (< 200 ng/mL); Benzodiazepine Urine PRESUMPTIVE POSITIVE (< 200 ng/mL); Buprenorphine Urine NEGATIVE (< 200 ng/mL); Cocaine Urine NEGATIVE (< 300 ng/mL); Fentanyl, Urine NEGATIVE; Methadone Urine NEGATIVE (< 300 ng/mL); Opiates Urine NEGATIVE (< 300 ng/mL); Oxycodone, Urine NEGATIVE (< 100 ng/mL); PCP Urine NEGATIVE (< 25 ng/mL); THC Urine NEGATIVE (< 50 ng/mL)
[2024-06-22] MEDS: Pantoprazole Sodium 40 MG in 0.9% Normal Saline (100mL MB+) 100 ML 330 MG IV ×2 (03:35→09:49)
[2024-06-22] MEDS: 0.9% Saline Lock 10 ML Syringe IV (03:35)
[2024-06-22 04:08] LABS: Cholesterol 156 mg/dL (<=200); High Density Lipoprotein 44 mg/dL; Low Density Lipoprotein Calc. 99 mg/dL; Triglycerides 65 mg/dL; Very Low Density Lipoprotein 13 mg/dL (5-40); cholesterol:hdl ratio screen 3.53
[2024-06-22] MEDS: Norepinephrine 8 MG in 0.9% Normal Saline (250mL Bag) 242 ML 9.4 MG CONT INF (04:45)
--- NOTE | 2024-06-22 05:59 | US_ITS ---
PROCEDURE: KIDNEY AND BLADDER, 06/22/2024 9:11 a.m. REASON FOR EXAM: R HYDRONEPHROSIS ON CT; EVAL. FOR STONE OR STRICTU TECHNIQUE: Grayscale and color doppler ultrasound of the kidneys and bladder was performed. COMPARISON: 2:05 a.m. FINDINGS: Right kidney: 8.5 cm in length. Fullness of the renal pelvis with trace hydronephrosis, improved from previous CT. No visualized mass or calculus. Left kidney: 8.2 cm in length. Fullness of the renal pelvis without tr caliectasis/hydronephrosis. No visualized mass or calculus. Bladder: Estimated volume 292 mL. Shepherd catheter visualized. Bladder wall trabeculation. Wall thickening better seen on previous CT. Other: None. US/Kidney and Bladder IMPRESSION: 1. Fullness of bilateral renal pelvis with trace hydronephrosis on the RIGHT, i mproved from previous CT. No visualized nephrolithiasis. 2. Note that the ureters are poorly evaluated sonographically. If there is per sistent concern for stricture or ureteral calculus, recommend CT urogram with and without IV contrast. Note a delay to a llow passage of the previously seen excreted contrast prior to CT urogram would be optimal. 3. Bladder wall thickening and trabeculation better seen on previous CT, sugges ting chronic bladder outlet obstruction and/or cystitis. 4. Additional description as above. Reading Location: [id number]
[2024-06-22] MEDS: levETIRAcetam IV 1,000 MG/100 ML BAG 400 MG IV ×2 (06:42→21:21)
--- NOTE | 2024-06-22 07:12 | MRI_ITS ---
PROCEDURE: BRAIN W/WO CONTRAST 06/22/2024 REASON FOR EXAM: SEIZURE TECHNIQUE: Brain MRI without and with intravenous contrast with additional dedicated imaging of the IACs. Multiplanar and multisequence images were obtained. CONTRAST: 10 cc IV Clariscan was administered. COMPARISON: None FINDINGS: BRAIN/PARENCHYMA: No evidence of acute infarction or acute intracranial hemorrhage. There are subcortical and periventricular white matter FLAIR hyperintensities, likely related to chronic microvascular ischemic disease. No abnormal post-contrast enhancement. EXTRA-AXIAL SPACES: No abnormal extra-axial fluid collections. Patent basal cisterns and foramen magnum. MIDLINE SHIFT: None. VENTRICLES: Moderate generalized volume loss with concordant ventricular enlargement. SCALP SOFT TISSUES & CALVARIUM: No significant abnormality. VISUALIZED SINUSES & MASTOIDS: Mild paranasal sinus mucosal thickening.. The mastoid air cells are clear. ARTERIAL FLOW VOIDS: Preserved major arterial flow voids indicating gross patency. MRI/Brain W/WO Contrast IMPRESSION: 1. No acute intracranial abnormality. 2. No suspicious intracranial mass, abnormal parenchymal or leptomeningeal enha ncement. 3. Moderate chronic microvascular ischemia and involutional changes. Reading Location: [facility]
--- NOTE | 2024-06-22 07:12 | PN.HOSP_ITS ---
Reason for Visit Reason for Visit: Seizure Subjective Subjective No further seizure overnight. No issues this morning. Awaiting further imaging and neuro input. Per discussion with urology they do not feel that this hydronephrosis is anything that needs to be managed acutely based on review of imaging and clinical situation. Outpatient follow-up is recommended. Objective Data Objective Data Vital Signs: Vital Signs Temp Pulse Resp BP Pulse Ox O2 Del Method O2 Flow Rate 95.5 F L 83 11 L 103/57 L 100 Nasal Cannula 2 06/22/24 06:00 06/22/24 06:00 06/22/24 06:00 06/22/24 06:00 06/22/24 06:00 06/22/24 06:00 06/22/24 06:00 Oxygen Flow Rate (L/min) 2 Oxygen Delivery Method Nasal Cannula Weight: 51.1 kg Body Mass Index (BMI) 19.9 Intake & Output: Intake and Output for Last 24 Hours 06/20/24 06/21/24 06/22/24 23:59 23:59 23:59 Intake Total 250 / 250 1922.98 / 1922.98 Output Total 975 / 975 Balance 250 / 250 947.98 / 947.98 Lab / Micro Data 06/21/24 18:30 06/21/24 18:30 Labs: Laboratory Results - last 24 hr 06/21/24 17:27: Urine Color Straw, Urine Clarity Clear, Urine pH 7.0, Ur Specific [place] 1.010, Urine Protein Negative, Urine Glucose (UA) Normal, Urine Ketones Negative, Urine Occult Blood Negative, Urine Nitrite Negative, Urine Bilirubin Negative, Urine Urobilinogen Normal, Ur Leukocyte Esterase Negative, Urine RBC 0-5 SEEN, Urine WBC 0-5 SEEN, Ur Squamous Epith Cells 0-5 SEEN, Urine Bacteria 0 SEEN, Urine Mucus 0 SEEN 06/21/24 18:30: WBC 7.5, RBC 4.26, Hgb 12.7, Hct 37.7, MCV 88.5, MCH 29.8, MCHC 33.7, RDW Std Deviation 42.5, RDW Coeff of Ata 13.2, Plt Count 295, MPV 8.9, I mmature Gran % (Auto) 1.100 H, Neut % (Auto) 43.4 L, Lymph % (Auto) 44.4 H, [place] % (Auto) 8.2, Eos % (Auto) 1.7, Baso % (Auto) 1.2 H, Absolute Neuts (auto) 3.2, Absolute Lymphs (auto) 3.32, Nucleated RBC % 0.5, Platelet Estimate ADEQUATE, PT 12.7, INR 0.9, APTT 35.1, Sodium 137, Potassium 4.2, Chloride 100, Carbon Dioxide 29.9, Anion Gap 8, BUN 14, Creatinine 0.59 L, Estim Creat Clear Calc 88.07, Est GFR (MDRD) Non-Af 106, BUN/Creatinine Ratio 23.1 H, Glucose 96, Hemoglobin A1c 5.3, Calcium 9.6, Total Bilirubin 0.19, Direct Bilirubin 0.09, AST 27, ALT 26, Alkaline Phosphatase 122 H, Troponin T High Sens 13, Total Protein 7.1, Albumin 4.1, Globulin 3.0 06/21/24 18:55: Lactic Acid < 1.0 06/21/24 20:36: Troponin T Hi Sens 2 Hr 14 06/21/24 22:43: Troponin T Hi Sens 4Hr 14, Vitamin B12 841, TSH 4.220 H 06/21/24 23:30: Serum Folate 10.90, Ethyl Alcohol < 10.1 06/22/24 01:50: Lactic Acid < 1.0 06/22/24 02:15: Urine Opiates Screen NEGATIVE, U Buprenorphine Qual NEGATIVE, Ur Oxycodone Screen NEGATIVE, Urine Methadone Screen NEGATIVE, Urine Fentanyl Screen NEGATIVE, Ur Barbiturates Screen NEGATIVE, Ur Phencyclidine Scrn NEGATIVE, Ur Amphetamines Screen NEGATIVE, U Benzodiazepines Scrn PRESUMPTIVE POSITIVE, Urine Cocaine Screen NEGATIVE, U Cannabinoids Screen NEGATIVE 06/22/24 03:40: Triglycerides 65, Cholesterol 156, LDL Cholesterol, Calc 99, VLDL Cholesterol 13, HDL Cholesterol 44, Cholesterol/HDL Ratio 3.53, Free T4 1.20, Free T3 pg/dL 2.0 L Radiography Diagnostic Testing: Radiology Impression Brain CT 06/21/24 18:50 IMPRESSION: No acute intracranial abnormalities are demonstrated. Reading Location: [facility] Head/Neck CTA 06/21/24 18:50 IMPRESSION: No intracranial vascular abnormalities are demonstrated. No other significant findings. Reading Location: [facility] Chest X-Ray 06/21/24 19:40 IMPRESSION: No active cardiopulmonary disease.. Reading Location: [facility] Abdomen/Pelvis CT 06/22/24 01:38 IMPRESSION: Platelike area at the visualized left base may represent atelectasis. Contrast material is seen in the right and left renal collecting system with [id number] right-sided hydronephrosis. A Shepherd catheter is present within the collapsed bladder. The bladder wall appears diffusely thickened although nonspecific with underdistention, clinically correlate. Eczcivct-ip-[id number] amount of ascending and transverse colonic stool. No evidence of colonic wall thickening or pericolonic inflammatory change. Reading Location: [facility] Physical Exam Const alert, no apparent distress, average body habitus and well nourished Constitutional Narrative: Middle-aged, Nilesh, white female, sitting up in bed, at bedside, patient with minimal verbal interaction today but acknowledges me and shakes her head yes and no HEENT head/scalp atraumatic and moist oral mucous membranes Head and Scalp: normocephalic Resp normal respiratory effort, no retractions, no use of accessory muscles and clear to auscultation bilaterally Auscultation: Negative for rales, rhonchi or wheezes Cardio regular rate, regular rhythm, S1 normal heart sound, S2 normal heart sound, no murmurs, no rub, no gallops and no clicks GI normal to inspection, nondistended, normoactive bowel sounds, soft to palpation and non-tender Extremity no clubbing, cyanosis or edema Extremity Narrative: Patient with baseline contractures related to her multiple sclerosis especially noted in her left upper extremity Neuro Neuro Narrative: Patient with baseline impairment related to her MS with no acute issues Psych Psych Narrative: Affect is flat Assessment & Plan Assessment/Plan (1) Hydronephrosis: QUALIFIERS: Hydronephrosis type: unspecified Qualified Code(s): N 13.30 - Unspecified hydronephrosis (2) Shock: (3) Seizure: PLAN: Plan Generalized tonic-clonic seizure - Per documentation had intracranial hemorrhage with seizure after - Has not been on any antiepileptic medications - Had seizure and route and was given Versed - EEG read is pending - Thus far reversible causes are unremarkable - MRI of the brain is negative - Echocardiogram is unremarkable - Does not appear to be an acute infection that is the etiology but cultures are still pending - Await further neurology and put - Continue Keppra at this time - Avoid medications that lower seizure threshold Undifferentiated shock - Fluid resuscitation ordered - Patient was given many medications that can affect blood pressure in the emergency department for seizure - Wean Levophed as able - Patient does have baseline issues with systolics in the 90s - Will continue broad-spectrum antibiotics for now until further cultures have resulted - Lactic acid is unremarkable so unclear on the significance of her blood pressure measurements Right-sided hydronephrosis - Urology is consulted and feels there is no need for acute intervention at this time based on objective data and reviewing of the images. - She does recommend outpatient follow-up with urology Right facial droop - Resolved - MRI is unremarkable - May have been a component of Richy's paralysis - Awaiting neurology input Multiple sclerosis - Type unclear - On natalizumab IV q. 28 days complicating - MRI with and without contrast with no new lesions identified - Awaiting further neurology input Remote fall - Patient with maxillary sinus fracture and small subarachnoid hemorrhage - Had seizure following event - Happened in August 2023 - Patient is fairly debilitated at baseline Recent UTI - Current UA is not suggestive of infection - Had been on Keflex - is concerned that her symptoms may be related to the Keflex--> it would be unlikely but cephalosporins can cause neurotoxicity Hypothyroidism - Continue home levothyroxine For TSH is within normal limits Neurogenic bladder - Continue home oxybutynin Vitamin D deficiency - Continue home cholecalciferol DVT prophylaxis - Continue subcu heparin CODE STATUS - Full code as verified with Charges/Coding Visit Charges Inpatient E&M: 54167 Subs Hosp L2 NIHSS NIHSS Nursing Documentation NIHSS Nursing Documentation: NIHSS: Ischemic Stroke/TIA Start: 06/21/24 23:04 Text: For ICU Patients: NIH sroke scale at Status: Active presentation and every 2 hours or with change in RN caregiver Freq: [id number] Protocol: Activity Type Activity Date Activity User E-sign Co-sign Detail Recorded Client Recorded Date Recorded By Document 06/22/24 06:00 [id number] 06/22/24 06:38 TM 06/22/24 06:00 NIH Stroke Scale [NIHSS] A score of 0 is normal or asymptomatic . Total possible score is 42. Inpatient: RN or Physician to activate a stroke alert for onset of new stroke symptoms or with NIHSS increase >/= 3 points. Following change in neurological status, NIHSS will be performed per physician order or more frequently PRN. -1a. Level of Consciousness 1 - Not alert; Arousable by minor stimuli to obey, answer & respond -1b. LOC Questions 1 - Answers ONE question correctly -1c. LOC Commands 0 - Performs BOTH tasks correctly -2. Best Gaze 0 - Normal -3. Visual 0 - No visual loss -4. Facial Palsy 0 - Normal symmetrical movements -5a. Left Arm 3 - No effort against gravity ; arm falls -5b. Right Arm 3 - No effort against gravity ; arm falls -6a. Left Leg 3 - No effort against gravity ; leg falls to bed immediately -6b. Right Leg 3 - No effort against gravity ; leg falls to bed immediately -7. Limb Ataxia 0 - Absent -8. Sensory 0 - Normal; no sensory loss -9. Best Language 2 - Severe aphasia; -10. Dysarthria 0 - Normal -11. Extinction and Inattention 0 - No abnormality -Total 16 Query Text:A score of 0 is normal or asymptomatic. Total possible score is 42 . ED: Notify Physician for NIHSS increase by > / = 3 points. Inpatient: RN or Physician to activate a stroke alert for NIHSS increase of > / = 3 points.
--- NOTE | 2024-06-22 07:44 | CON.PCM.CC_ITS ---
Assessment & Plan Assessment/Plan (1) Multiple sclerosis: (2) AMS (altered mental status): QUALIFIERS: Altered mental status type: unspecified Qualified Code(s): R41.82 - Altered mental status, unspecified (3) Seizure: PLAN: Plan RECOMMENDATIONS: 1. Administer additional IV fluid resuscitation as ordered. 2. Continue Levophed to maintain a mean arterial pressure at or above 65 mmHg or systolic blood pressure greater than 90 mmHg. 3. Obtain arterial blood gas and check ammonia level. 4. Continue antiepileptics. 5. Continue Synthroid as ordered. 6. Tentative plans for MRI brain this afternoon. 7. Urology consultation is pending. IMPRESSIONS: 1. Undifferentiated shock Unclear source of infection. It is certainly plausible that the patient's hemodynamic instability may be the consequence of medications that were administered in the emergency department versus intravascular volume depletion. Accordingly, we will plan to administer additional IV fluids at this time. Although no definitive source of infection has yet to be identified, we will continue antimicrobials for the next 24 to 48 hours, while awaiting culture data. In the interim, I would recommend that we wean her Levophed to maintain a systolic blood pressure at or above 90 mmHg or MAP greater than 65 mmHg. According to the patient's , she chronically runs on the low side with normal blood pressures in the 90s systolic. Although there was evidence of mild to moderate right-sided hydronephrosis on CT imaging, urology does not feel that the patient requires any form of intervention at this time. 2. Altered mental status Potentially related to postictal state versus side effects of benzodiazepine administration. The patient does have a known history of MS along with an unspecified seizure disorder. She has been appropriately loaded on Keppra. Recommend continuing seizure precautions. MRI brain has been scheduled for this afternoon. Recommend follow-up with neurology after testing is completed. Lastly, we will check ammonia level and ABG. 3. Recently diagnosed UTI/history of MS/hypothyroidism/anxiety Complicates care, management, recovery and prognosis. Continue home medications as indicated. Physical therapy will eventually need to work with the patient. TIME: 35 minutes of critical care time, independent of procedures, was spent addressing the patient's undifferentiated shock, altered mental status, review of all data and collaboration with care team. HPI Consult Data Date of Consult: 06/22/24 HPI Narrative Reason for Consultation: Sepsis HPI Narrative: The patient is a 54-year-old female, with a history as outlined below, who presented to the emergency department on June 22 with altered mental status. The patient has a known history of multiple sclerosis along with hypothyroidism, anxiety, unspecified seizure disorder and chronic hypotension. According to the patient's , she recently completed antimicrobials on an outpatient basis for a UTI. At her baseline, he indicated that her blood pressures typically run in the 90s systolic. According to documentation, the patient did experience a witnessed tonic-clonic seizure by EMS providers while en route to the hospital. On presentation to the emergency department, the patient was initially documented to be afebrile and hemodynamically stable. Laboratory evaluation revealed a normal white blood cell count. Coagulation profile was within normal limits. Chemistry profile was unremarkable. Lactate was within normal limits. Urine analysis was unremarkable. Toxicology screen revealed a presumptive positive for benzodiazepines. Alcohol level was negative. CT head revealed no acute intracranial abnormalities. CTA head and neck was negative. Chest x-ray was unremarkable. The patient was evaluated by [facility] teleneurology with recommendations to load with Keppra. While in the emergency department, the patient became hypothermic and hypotensive. She did receive supplemental IV fluid hydration, but was ultimately placed on vasopressor support. The patient was subsequently admitted to the medical intensive care unit for further management. [facility] Medical History (Updated 06/22/24 @ 05:[address] Hamlet Olson DO) Spastic Anxiety Multiple sclerosis Home Medications ?Medication ?Instructions ?Recorded ?Last Taken ?Type levothyroxine 25 mcg tablet 25 mcg PO DAILY 01/26/19 1 03/29/18 History clonazepam 0.5 mg tablet 0.5 mg PO QHS PRN PRN anxiet y 08/26/23 Unknown History natalizumab 300 mg/15 mL 300 mg IV Q28D 08/26/23 Unkn own History intravenous solution (Tysabri) cephalexin 500 mg capsule 500 mg PO Q12.TCU 06/21/24 U nknown History cholecalciferol (vitamin D3) 50 50 mcg PO QDAY 5 Unknown History mcg (2,000 unit) capsule oxybutynin chloride 10 mg 10 mg PO DAILY 06/21/24 Unkn own History tablet,extended release 24 hr Allergy/AdvReac Type Severity Reaction Status Date / Time No Known Allergies Allergy Verified 06/21/24 18:45 Social History household members: spouse housing: house Smoking Status: Never smoker ROS ROS Narrative 10 systems were reviewed with pertinent positives as noted in the HPI above. Physical Exam Const Constitutional Narrative: The patient is somnolent but arouses to verbal stimulation. General Appearance: cooperative HEENT normocephalic and head/scalp atraumatic Eyes PERRL, EOMs intact bilaterally and conjunctivae normal Neck supple General: trachea midline Chest inspection of chest normal Resp normal respiratory effort Auscultation: Negative for rales, rhonchi or wheezes Cardio regular rate and regular rhythm GI normal to inspection, nondistended, normoactive bowel sounds Extremity no clubbing, cyanosis or edema Extremity Narrative: Contracted left upper extremity Skin no rashes or lesions noted Neuro CN's II-XII intact bilaterally and no focal motor deficits Psych Mood & Affect: flat affect Lab / Micro Data 06/21/24 18:30 06/21/24 18:30 Labs: Laboratory Results - last 24 hr 06/21/24 17:27: Urine Color Straw, Urine Clarity Clear, Urine pH 7.0, Ur Specific [place] 1.010, Urine Protein Negative, Urine Glucose (UA) Normal, Urine Ketones Negative, Urine Occult Blood Negative, Urine Nitrite Negative, Urine Bilirubin Negative, Urine Urobilinogen Normal, Ur Leukocyte Esterase Negative, Urine RBC 0-5 SEEN, Urine WBC 0-5 SEEN, Ur Squamous Epith Cells 0-5 SEEN, Urine Bacteria 0 SEEN, Urine Mucus 0 SEEN 06/21/24 18:30: WBC 7.5, RBC 4.26, Hgb 12.7, Hct 37.7, MCV 88.5, MCH 29.8, MCHC 33.7, RDW Std Deviation 42.5, RDW Coeff of Taa 13.2, Plt Count 295, MPV 8.9, I mmature Gran % (Auto) 1.100 H, Neut % (Auto) 43.4 L, Lymph % (Auto) 44.4 H, [place] % (Auto) 8.2, Eos % (Auto) 1.7, Baso % (Auto) 1.2 H, Absolute Neuts (auto) 3.2, Absolute Lymphs (auto) 3.32, Nucleated RBC % 0.5, Platelet Estimate ADEQUATE, PT 12.7, INR 0.9, APTT 35.1, Sodium 137, Potassium 4.2, Chloride 100, Carbon Dioxide 29.9, Anion Gap 8, BUN 14, Creatinine 0.59 L, Estim Creat Clear Calc 88.07, Est GFR (MDRD) Non-Af 106, BUN/Creatinine Ratio 23.1 H, Glucose 96, Hemoglobin A1c 5.3, Calcium 9.6, Total Bilirubin 0.19, Direct Bilirubin 0.09, AST 27, ALT 26, Alkaline Phosphatase 122 H, Troponin T High Sens 13, Total Protein 7.1, Albumin 4.1, Globulin 3.0 06/21/24 18:55: Lactic Acid < 1.0 06/21/24 20:36: Troponin T Hi Sens 2 Hr 14 06/21/24 22:43: Troponin T Hi Sens 4Hr 14, Vitamin B12 841, TSH 4.220 H 06/21/24 23:30: Serum Folate 10.90, Ethyl Alcohol < 10.1 06/22/24 01:50: Lactic Acid < 1.0 06/22/24 02:15: Urine Opiates Screen NEGATIVE, U Buprenorphine Qual NEGATIVE, Ur Oxycodone Screen NEGATIVE, Urine Methadone Screen NEGATIVE, Urine Fentanyl Screen NEGATIVE, Ur Barbiturates Screen NEGATIVE, Ur Phencyclidine Scrn NEGATIVE, Ur Amphetamines Screen NEGATIVE, U Benzodiazepines Scrn PRESUMPTIVE POSITIVE, Urine Cocaine Screen NEGATIVE, U Cannabinoids Screen NEGATIVE 06/22/24 03:40: Triglycerides 65, Cholesterol 156, LDL Cholesterol, Calc 99, VLDL Cholesterol 13, HDL Cholesterol 44, Cholesterol/HDL Ratio 3.53, Free T4 1.20, Free T3 pg/dL 2.0 L Imaging Radiology Impression Brain CT 06/21/24 18:50 IMPRESSION: No acute intracranial abnormalities are demonstrated. [facility] 06/21/24 18:50 IMPRESSION: No intracranial vascular abnormalities are demonstrated. No other significant findings. Reading Location: [facility] Chest X-Ray 06/21/24 19:40 IMPRESSION: No active cardiopulmonary disease.. Reading Location: [facility] Abdomen/Pelvis CT 06/22/24 01:38 IMPRESSION: Platelike area at the visualized left base may represent atelectasis. Contrast material is seen in the right and left renal collecting system with [id number] right-sided hydronephrosis. A Shepherd catheter is present within the collapsed bladder. The bladder wall appears diffusely thickened although nonspecific with underdistention, clinically correlate. Hgftmbos-ie-dmpod amount of ascending and transverse colonic stool. No evidence of colonic wall thickening or pericolonic inflammatory change. Reading Location: [id number] Charges/Coding Procedures Hospitalists Procedures: 26245 Critical Care 1st Hr
[2024-06-22] MEDS: Lactated Ringers 1,000 ML 999 ML IV (08:28)
[2024-06-22 09:06] LABS: Allen Test Positive; Base Excess 6 mmol/L (-2 to +2); Bicarbonate 32.4 mmol/L (22-26); Blood Gas Specimen Type ART; Mode Not entered; O2 Delivery Device Cannula; PO2 196 mmHG (75-100); SITE R Radial; SO2 100 % (95-99); Total Carbon Dioxide 34 mmol/L; pCO2 63.5 mmHg (35-45); pH 7.32 (7.35-7.45)
[2024-06-22 09:21] LABS: Ammonia < 10.0 umol/L (11-51)
[2024-06-22] MEDS: Heparin Injection (Vial) 5,000 UNIT/ML VIAL 5000 UNIT SC ×2 (09:49→21:23)
--- NOTE | 2024-06-22 11:53 | CHAPLAIN ---
Type of Pastoral Visit _x__ Initial Visit ___ Follow-up Visit ___ On-call Visit ___ General Patient Visit ___ Spiritual Assessment ___ Family Conference ___ Bereavement ___ Rapid Response ___ Code Blue ___ Other (describe below) Pastoral Care Referral From _x__ Patient _x__ Family ___ Nurse ___ Physician ___ Lacquer Polisher ___ Cable Hooker ___ Other (describe below) Sacrament/Intervention _x__ Active listening ___ Anointing ___ Mormon ___ Bereavement ___ Communion ___ Linda exploration ___ ___ Life review _x__ Prayer ___ Reconciliation ___ Sacrament of Sick _x__ Supportive presence ___ Wedding ___ Other (describe below) Pastoral Comments patient is awake but very quiet and only answers questions without engagement in a conversation; spouse is in the room and explains more of the health situation; spouse is expressive of his care and love of the patient; spouse welcomes a prayer and presence; spouse asks patient if approval; prayer given and offer of ongoing support as well; PT and OT came at this time to evaluate patient
--- NOTE | 2024-06-22 13:34 | CASEMGMT ---
BING ZEPEDA Assessment Face to Face with patient for initial transition planning/care coordination assessment. BING ZEPEDA introduced self and role at [facility]. Pt is currently A&Ox1 to self. Pt's (Hamlet) is at bedside and willing to help. Care providers, pharmacy, and demographics verified. Admitting dx: Seizure, AMS, Possible TIA LACE Strata: 1 PCP: Radha Winter Specialists: Dr. Cas Fong (Neurology for MS) Preferred Pharmacy: [facility] Insurance: [employer] Prescription Benefit: yes LNOK: Hamlet (H) Living Arrangements: Pt lives with her SO in a single story home with a FFSU and a flat entrance. There are no steps in the entire home. ADLs/IADLs: See PT/OT notes. Pt is independent in certain aspects but the helps care for the pt at home. Transportation: Hires Drivers and denies concerns at this time DME: Rollator, W/C, Raised toilet seat, shower chair, grab bars. HHC/SNF: Reports HH History x 10 years ago but cannot recall the name of the agency. Denies SNF history. Plan: TBD. Anticipate SNF vs home with HHC. See PT notes. Therapy is recommending additional skilled therapy at the time of DC. At this time, the pt's refuses SNF needs and states that he prefers to bring the pt home with C. Hamlet states that he works for [employer] and that cost will not be an issue. Pt requests that the HH professionals be female only to make the pt more comfortable. Hamlet declines wanting to review a list of local in network C agencies and states that he prefers [facility]. Hamlet is requesting PT/OT only at this time. Per ST busby, ST may be warranted. Will follow. TC to Corina at [facility] and referral made. Awaiting return response. Hamlet denies further questions or concerns at this time. CM to follow. Aisha Forrester RN, CM
--- NOTE | 2024-06-22 17:47 | CON.PCM_ITS ---
Assessment & Plan Assessment/Plan (1) History of urinary tract infection: (2) Sepsis: QUALIFIERS: Sepsis type: sepsis due to unspecified organism S epsis acute organ dysfunction status: with acute organ dysfunction Severe sepsis acute organ dysfunction type: unspecified Severe sepsis shock status: w ith septic shock Qualified Code(s): A41.9 - Sepsis, unspecified organism; R65.21 - Severe sepsis with septic shock (3) Multiple sclerosis: (4) TIA (transient ischemic attack): (5) Seizure: (6) AMS (altered mental status): QUALIFIERS: Altered mental status type: unspecified Qualified Code(s): R41.82 - Altered mental status, unspecified (7) Hydronephrosis: QUALIFIERS: Hydronephrosis type: unspecified Qualified Code(s): N 13.30 - Unspecified hydronephrosis PLAN: Plan After reviewing her imaging, renal function, urinalysis and awaiting results of the culture with no flank pain or hematuria, fever, I do not see a medical need to take her for surgical intervention for mild right hydronephrosis. There is contrast in the distal ureter on evaluation. She has good urine output. She would however, definitely benefit from evaluation in the outpatient setting with cystoscopy and urodynamics, altering of her overactive bladder medication and beginning urinary tract infection prevention. I discussed this with the and he is in agreement. We will plan to proceed with evaluation as an outpatient for these issues to prevent future urinary tract infections, which are likely and common in the setting of multiple sclerosis. Will follow for trial of void when medically stable. HPI Consult Data Date of Consult: 06/22/24 HPI Narrative HPI Narrative: ADELAIDA JUNIOR, is a 54 F with a history of MS. At home she does not have a Shepherd catheter but struggles to empty her bladder and with constipation. She has been getting approximately 2 urinary tract infections each year. She has not been followed with a urologist. She also does struggle with some urinary incontinence and uses approximately 2 pads per day. The patient is unable to tell me this information and it is coming from her who is at bedside. She has not had hematuria or history of stones. She has never had renal obstruction or pyelonephritis. She has been on an anticholinergic medication oxybutynin at home. Currently, it has been exchanged for tolterodine. Prior to this admission, approximately 10 days ago, she was diagnosed with a urinary tract infection. 3 days after starting antibiotics they received a call that the infection was resistant to the provided antibiotics and they were switched to cephalexin. She had 1 remaining day of antibiotics left when her found her passed out at home. He felt there might have been a stroke as her mouth was shifted to the side. She was found to be hypotensive upon evaluation. Currently she is feeling better. She denies pain but is not able to answer specific questions. [facility] Medical History (Updated 06/22/24 @ 17:[address] Annette Arriaga MD) Spastic Anxiety Multiple sclerosis Home Medications ?Medication ?Instructions ?Recorded ?Last Taken ?Type levothyroxine 25 mcg tablet 25 mcg PO DAILY 01/26/19 1 03/29/18 History clonazepam 0.5 mg tablet 0.5 mg PO QHS PRN PRN anxiet y 08/26/23 Unknown History natalizumab 300 mg/15 mL 300 mg IV Q28D 08/26/23 Unkn own History intravenous solution (Tysabri) cephalexin 500 mg capsule 500 mg PO Q12.TCU 06/21/24 U nknown History cholecalciferol (vitamin D3) 50 50 mcg PO QDAY 5 Unknown History mcg (2,000 unit) capsule oxybutynin chloride 10 mg 10 mg PO DAILY 06/21/24 Unkn own History tablet,extended release 24 hr Allergy/AdvReac Type Severity Reaction Status Date / Time No Known Allergies Allergy Verified 06/21/24 18:45 Social History household members: spouse housing: house Smoking Status: Never smoker ROS Review of Systems ROS Unobtainable: due to mental status Constitutional Constitutional: Reports systems reviewed and no addt'l complaints, except as documented; Denies fever(s) Eyes Eyes: Reports systems reviewed and no addt'l complaints, except as documented ENT HEENT: Reports systems reviewed and no addt'l complaints, except as documented Cardiovascular Cardiovascular: Denies abdominal pain or chest pain Respiratory/Chest Respiratory/Chest: Denies cough or dyspnea Gastrointestinal Gastrointestinal: Reports constipation; Denies abdominal pain or nausea Genitourinary Genitourinary: Reports difficulty urinating, dysuria and urinary incontinence; Denies flank pain or hematuria Musculoskeletal Musculoskeletal: Reports muscle weakness Integumentary Integumentary: Reports systems reviewed and no addt'l complaints, except as documented Neurologic Neurologic: Reports confusion and weakness Psychiatric Psychiatric: Reports systems reviewed and no addt'l complaints, except as documented Endocrine Endocrinology: Reports systems reviewed and no addt'l complaints, except as documented Hematologic/Lymphatic Hematologic/Lymphatic: Reports systems reviewed and no addt'l complaints, except as documented Allergic/Immunologic Allergic/Immunologic: Reports systems reviewed and no addt'l complaints, except as documented Physical Exam Const alert and no apparent distress Constitutional Narrative: She is not sure why she is here and cannot recall her day-to-day activities prior to admission. is providing information. HEENT normocephalic and head/scalp atraumatic Eyes General Eye: normal appearance of both eyes Neck supple General: trachea midline Lymph Lymphatic: no lymphedema noted Chest inspection of chest normal Chest: symmetrical chest wall rise Resp normal respiratory effort, normal air movement and no retractions Cardio regular rate GI soft to palpation and non-distended no CVA tenderness Narrative: Urine is clear yellow in the urethral Shepherd catheter Skin no rashes or lesions noted, no jaundice and no petechiae Neuro CN's II-XII intact bilaterally Lab / Micro Data 06/21/24 18:30 06/21/24 18:30 Labs: Laboratory Results - last 24 hr 06/21/24 17:27: Urine Color Straw, Urine Clarity Clear, Urine pH 7.0, Ur Specific Winfred 1.010, Urine Protein Negative, Urine Glucose (UA) Normal, Urine Ketones Negative, Urine Occult Blood Negative, Urine Nitrite Negative, Urine Bilirubin Negative, Urine Urobilinogen Normal, Ur Leukocyte Esterase Negative, Urine RBC 0-5 SEEN, Urine WBC 0-5 SEEN, Ur Squamous Epith Cells 0-5 SEEN, Urine Bacteria 0 SEEN, Urine Mucus 0 SEEN 06/21/24 18:30: WBC 7.5, RBC 4.26, Hgb 12.7, Hct 37.7, MCV 88.5, MCH 29.8, MCHC 33.7, RDW Std Deviation 42.5, RDW Coeff of Ata 13.2, Plt Count 295, MPV 8.9, I mmature Gran % (Auto) 1.100 H, Neut % (Auto) 43.4 L, Lymph % (Auto) 44.4 H, [place] % (Auto) 8.2, Eos % (Auto) 1.7, Baso % (Auto) 1.2 H, Absolute Neuts (auto) 3.2, Absolute Lymphs (auto) 3.32, Nucleated RBC % 0.5, Platelet Estimate ADEQUATE, PT 12.7, INR 0.9, APTT 35.1, Sodium 137, Potassium 4.2, Chloride 100, Carbon Dioxide 29.9, Anion Gap 8, BUN 14, Creatinine 0.59 L, Estim Creat Clear Calc 88.07, Est GFR (MDRD) Non-Af 106, BUN/Creatinine Ratio 23.1 H, Glucose 96, Hemoglobin A1c 5.3, Calcium 9.6, Total Bilirubin 0.19, Direct Bilirubin 0.09, AST 27, ALT 26, Alkaline Phosphatase 122 H, Troponin T High Sens 13, Total Protein 7.1, Albumin 4.1, Globulin 3.0 06/21/24 18:55: Lactic Acid < 1.0 06/21/24 20:36: Troponin T Hi Sens 2 Hr 14 06/21/24 22:43: Troponin T Hi Sens 4Hr 14, Vitamin B12 841, TSH 4.220 H 06/21/24 23:30: Serum Folate 10.90, Ethyl Alcohol < 10.1 06/22/24 01:50: Lactic Acid < 1.0 06/22/24 02:15: Urine Opiates Screen NEGATIVE, U Buprenorphine Qual NEGATIVE, Ur Oxycodone Screen NEGATIVE, Urine Methadone Screen NEGATIVE, Urine Fentanyl Screen NEGATIVE, Ur Barbiturates Screen NEGATIVE, Ur Phencyclidine Scrn NEGATIVE, Ur Amphetamines Screen NEGATIVE, U Benzodiazepines Scrn PRESUMPTIVE POSITIVE, Urine Cocaine Screen NEGATIVE, U Cannabinoids Screen NEGATIVE 06/22/24 03:40: Triglycerides 65, Cholesterol 156, LDL Cholesterol, Calc 99, VLDL Cholesterol 13, HDL Cholesterol 44, Cholesterol/HDL Ratio 3.53, Free T4 1.20, Free T3 pg/dL 2.0 L 06/22/24 08:35: Ammonia < 10.0 L ABG Data ABG results: ABG 06/22/24 09:02 Specimen Type ART Sample Site R Radial pH 7.32 L Bicarbonate Actual 32.4 H Total CO2 34 Base Excess 6 H O2 Saturation 100 H O2 % 2.0 ABG pCO2 63.5 H ABG pO2 196 H Tony Test Positive O2 Delivery Device Cannula Vent Mode Not entered Imaging Radiology Impression Brain CT 06/21/24 18:50 IMPRESSION: No acute intracranial abnormalities are demonstrated. Reading [facility] Head/Neck CTA 06/21/24 18:50 IMPRESSION: No intracranial vascular abnormalities are demonstrated. No other significant findings. Reading Location: [facility] Chest X-Ray 06/21/24 19:40 IMPRESSION: No active cardiopulmonary disease.. Reading Location: [facility] Echocardiogram 06/21/24 21:44 Interpretation Summary The LV systolic function is normal. EF is 65 %. Ordering Physician: Hamlet Olson Referring Physician: Hamlet Olson Performed By: Rafi Snow RCS Abdomen/Pelvis CT 06/22/24 01:38 IMPRESSION: Platelike area at the visualized left base may represent atelectasis. Contrast material is seen in the right and left renal collecting system with [id number] right-sided hydronephrosis. A Shepherd catheter is present within the collapsed bladder. The bladder wall appears diffusely thickened although nonspecific with underdistention, clinically correlate. [id number] amount of ascending and transverse colonic stool. No evidence of colonic wall thickening or pericolonic inflammatory change. Reading Location: [id number] Renal Ultrasound 06/22/24 05:59 IMPRESSION: 1. Fullness of bilateral renal pelvis with trace hydronephrosis on the RIGHT, improved from previous CT. No visualized nephrolithiasis. 2. Note that the ureters are poorly evaluated sonographically. If there is persistent concern for stricture or ureteral calculus, recommend CT urogram with and without IV contrast. Note a delay to allow passage of the previously seen excreted contrast prior to CT urogram would be optimal. 3. Bladder wall thickening and trabeculation better seen on previous CT, suggesting chronic bladder outlet obstruction and/or cystitis. 4. Additional description as above. Reading Location: [id number] Brain MRI 06/22/24 07:12 IMPRESSION: 1. No acute intracranial abnormality. 2. No suspicious intracranial mass, abnormal parenchymal or leptomeningeal enhancement. 3. Moderate chronic microvascular ischemia and involutional changes. Reading Location[facility]
[2024-06-22] MEDS: Atorvastatin Calcium 80 MG Tablet PO (21:24)
[2024-06-23] VITALS (19 sets, daily range): BP systolic 78–102; BP diastolic 54–66; PULSE 72–86; RESP 11–15; TEMP 34.8–36.4; O2SAT 97–100; BMI 19.9; BMI 21.1
[2024-06-23 04:49] LABS: Absolute Lymphocyte Count 2.31 X10^3/uL (0.83-4.51); Basophil# 0.04 X10^3/uL; Basophil% 0.8 % (0-1); Eosinophil# 0.08 X10^3/uL; Eosinophils% 1.6 % (0-5); Hematocrit 27.2 % (37-47); Hemoglobin 9.2 g/dL (12.0-15.0); Lymphocyte # 2.31 X10^3/ul (0.83-4.51); Lymphocyte % 47.4 % (19-41); Mean Corp Hgb Conc 33.8 g/dL (32-36); Mean Corpuscular Hgb 30.2 pg (27.0-32.0); Mean Corpuscular Volume 89.2 fL (81-99); Mean Platelet Vol. 8.8 fl (6.2-12.0); Monocyte% 8.2 % (0-10); NRBC Flagged by Analyzer 0.4 % (0-5); Neutrophil # 2.03 X10^3/uL (2.7-7.7); Neutrophil % 41.8 % (47-70); POSITIVE MORPHOLOGY YES; Platelet Count 157 K/mm3 (150-450); RBC Distribution Width CV 13.4 % (11.6-14.6); RBC Distribution Width SD 43.8 fl (35.1-43.9); Red Blood Count 3.05 M/mm3 (4.2-5.4); White Blood Count 4.9 K/mm3 (4.4-11.0)
[2024-06-23 05:05] LABS: Differential Indicated SCAN CRITERIA MET
[2024-06-23 05:07] LABS: Anion Gap 6 (5-15); BUN 10 mg/dL (4-19); BUN/Creat Ratio 14.2 RATIO (10-20); Calcium,Total 8.6 mg/dL (7.6-11.0); Chloride 108 mmol/L (98-108); EST Glomerular Filtration Rate 102 (>60); Estimated Creatinine Clearance 74.23 ml/min (50-250); Glucose 73 mg/dL (70-99); Potassium 3.8 mmol/L (3.3-5.1); Sodium Level 140 mmol/L (133-145)
[2024-06-23 05:28] LABS: Differential Comment SCANNED; Platelet Estimate ADEQUATE (ADEQ)
[2024-06-23 05:29] LABS: Red Cell Morphology NORM C+C NORMAL (NORM C&C)
--- NOTE | 2024-06-23 05:47 | PCM.PN.INT ---
Assessment & Plan Assessment/Plan (1) Multiple sclerosis: (2) AMS (altered mental status): QUALIFIERS: Altered mental status type: unspecified Qualified Code(s): R41.82 - Altered mental status, unspecified (3) Seizure: PLAN: Plan RECOMMENDATIONS: 1. Continue empiric antibiotics pending finalized culture results. 2. Continue scheduled midodrine. 3. Obtain neurology follow-up. 4. Continue Synthroid as ordered. 5. Encourage incentive spirometer use and mobilize patient as tolerated. IMPRESSIONS: 1. Undifferentiated shock Unclear source of infection. It is certainly plausible that the patient's hemodynamic instability may be the consequence of medications that were administered in the emergency department versus intravascular volume depletion. With additional volume resuscitation and supportive care, the patient was able to be weaned off of vasopressor support. She will remain on scheduled midodrine, due to her history of chronically low blood pressures. At this time, no discernible source of infection has yet to be identified. However, we will plan to continue empiric antibiotics until cultures are finalized. Although there was evidence of mild to moderate right-sided hydronephrosis on CT imaging, urology does not feel that the patient requires any form of intervention at this time. 2. Altered mental status Potentially related to postictal state versus side effects of benzodiazepine administration. The patient does have a known history of MS along with an unspecified seizure disorder. She was appropriately loaded on Keppra. Subsequent MRI brain and EEG were unrevealing, nonetheless. Recommend neurology follow-up. 3. Recently diagnosed UTI/history of MS/hypothyroidism/anxiety Complicates care, management, recovery and prognosis. Continue home medications as indicated. Physical therapy to work with the patient. This note was generated with [employer] dictation software. It may contain incorrect words, spelling, and punctuation that were not noted in checking the note before signing. Subjective Subjective The patient was seen and examined at the bedside this morning. Events from the last 24 hours have been reviewed. The patient is currently afebrile, hemodynamically stable and maintaining appropriate oxygen saturations on room air. The patient has been successfully weaned off of vasopressor support. White blood cell count is normal. The patient has no specific complaints this morning. Objective Data Objective Data The patient's most recent lab work, culture data and imaging studies have all been personally reviewed. Blood and urine cultures are pending. Vital Signs: Vital Signs Temp Pulse Resp BP Pulse Ox O2 Del Method O2 Flow Rate 97.3 F L 86 13 80/65 L 97 Room Air 2 06/23/24 03:00 06/23/24 04:00 06/23/24 04:00 06/23/24 04:00 06/23/24 04:00 06/23/24 04:00 06/22/24 11:11 Oxygen Flow Rate (L/min) 2 Oxygen Delivery Method Room Air Weight: 119 lb 0.794 oz Body Mass Index (BMI) 21.1 Intake & Output: Intake and Output for Last 24 Hours 06/21/24 06/22/24 06/23/24 23:59 23:59 23:59 Intake Total 250 / 250 4062.99 / 4062.99 50 / 50 Output Total 1925 / 2125 200 / 200 Balance 250 / 250 2137.99 / 1937.99 -150 / -150 Lab / Micro Data Attestation: I reviewed the patient's lab results. 06/23/24 04:40 06/23/24 04:40 Labs: Laboratory Results - last 24 hr 06/22/24 03:40: Free T4 1.20, Free T3 pg/dL 2.0 L 06/22/24 08:35: Ammonia < 10.0 L 06/23/24 04:40: WBC 4.9, RBC 3.05 L, Hgb 9.2 L, Hct 27.2 L, MCV 89.2, MCH 30.2, MCHC 33.8, RDW Std Deviation 43.8, RDW Coeff of Ata 13.4, Plt Count 157, MPV 8.8, Immature Gran % (Auto) 0.200, Neut % (Auto) 41.8 L, Lymph % (Auto) 47.4 H, [place] % (Auto) 8.2, Eos % (Auto) 1.6, Baso % (Auto) 0.8, Absolute Neuts (auto) 2.0, Absolute Lymphs (auto) 2.31, Nucleated RBC % 0.4, Differential Comment SCANNED, Platelet Estimate ADEQUATE, RBC Morphology NORM C+C, Sodium 140, Potassium 3.8, Chloride 108, Carbon Dioxide 26.0, Anion Gap 6, BUN 10, Creatinine 0.70, Estim Creat Clear Calc 74.23, Est GFR (MDRD) Non-Af 102, BUN/Creatinine Ratio 14.2, Glucose 73, Calcium 8.6 ABG Data ABG results: ABG 06/22/24 09:02 Specimen Type ART Sample Site R Radial pH 7.32 L Bicarbonate Actual 32.4 H Total CO2 34 Base Excess 6 H O2 Saturation 100 H O2 % 2.0 ABG pCO2 63.5 H ABG pO2 196 H Tony Test Positive O2 Delivery Device Cannula Vent Mode Not entered Radiography Diagnostic Testing: Radiology Impression Echocardiogram 06/21/24 21:44 Interpretation Summary The LV systolic function is normal. EF is 65 %. Ordering Physician: Hamlet Olson Referring Physician: Hamlet Olson Performed By: Rafi Snow [facility] Renal Ultrasound 06/22/24 05:59 IMPRESSION: 1. Fullness of bilateral renal pelvis with trace hydronephrosis on the RIGHT, improved from previous CT. No visualized nephrolithiasis. 2. Note that the ureters are poorly evaluated sonographically. If there is persistent concern for stricture or ureteral calculus, recommend CT urogram with and without IV contrast. Note a delay to allow passage of the previously seen excreted contrast prior to CT urogram would be optimal. 3. Bladder wall thickening and trabeculation better seen on previous CT, suggesting chronic bladder outlet obstruction and/or cystitis. 4. Additional description as above. Reading Location: [id number] Brain MRI 06/22/24 07:12 IMPRESSION: 1. No acute intracranial abnormality. 2. No suspicious intracranial mass, abnormal parenchymal or leptomeningeal enhancement. 3. Moderate chronic microvascular ischemia and involutional changes. Reading Location: [facility] Physical Exam Const alert and no apparent distress General Appearance: cooperative HEENT normocephalic, head/scalp atraumatic and moist oral mucous membranes Eyes PERRL, EOMs intact bilaterally and conjunctivae normal Neck supple General: trachea midline Chest inspection of chest normal Resp Auscultation: diminished lung sounds; Negative for rales, rhonchi or wheezes Cardio regular rate and regular rhythm GI normal to inspection, nondistended, normoactive bowel sounds Extremity no clubbing, cyanosis or edema Extremity Narrative: Contracted left upper extremity Skin no rashes or lesions noted Neuro CN's II-XII intact bilaterally and no focal motor deficits Psych Mood & Affect: flat affect Charges/Coding Visit Charges Inpatient E&M: 68349 Subs Hosp L3
[2024-06-23] MEDS: Levothyroxine 25 MCG TABLET PO (06:27)
[2024-06-23] MEDS: Midodrine HCl 5 MG Tablet 10 MG PO ×3 (06:27→17:15)
[2024-06-23] MEDS: Piperacil/Tazobactam 3.375 GM in 0.9% Normal Saline (50mL MB+) 50 ML IV ×2 (06:28→14:37)
--- NOTE | 2024-06-23 07:08 | PN_ITS ---
Objective Data Objective Data Vital Signs: Vital Signs Temp Pulse Resp BP Pulse Ox O2 Del Method O2 Flow Rate 97.5 F L 80 13 90/61 99 Room Air 2 06/23/24 05:00 06/23/24 07:00 06/23/24 07:00 06/23/24 07:00 06/23/24 07:00 06/23/24 07:00 06/22/24 11:11 Oxygen Flow Rate (L/min) 2 Oxygen Delivery Method Room Air Weight: 54 kg Body Mass Index (BMI) 21.1 Intake & Output: Intake and Output for Last 24 Hours 06/21/24 06/22/24 06/23/24 23:59 23:59 23:59 Intake Total 250 / 250 4062.99 / 4062.99 50 / 50 Output Total 1925 / 2125 200 / 200 Balance 250 / 250 2137.99 / 1937.99 -150 / -150 Lab / Micro Data 06/23/24 04:40 06/23/24 04:40 Labs: Laboratory Results - last 24 hr 06/22/24 08:35: Ammonia < 10.0 L 06/23/24 04:40: WBC 4.9, RBC 3.05 L, Hgb 9.2 L, Hct 27.2 L, MCV 89.2, MCH 30.2, MCHC 33.8, RDW Std Deviation 43.8, RDW Coeff of Ata 13.4, Plt Count 157, MPV 8.8, Immature Gran % (Auto) 0.200, Neut % (Auto) 41.8 L, Lymph % (Auto) 47.4 H, [place] % (Auto) 8.2, Eos % (Auto) 1.6, Baso % (Auto) 0.8, Absolute Neuts (auto) 2.0, Absolute Lymphs (auto) 2.31, Nucleated RBC % 0.4, Differential Comment SCANNED, Platelet Estimate ADEQUATE, RBC Morphology NORM C+C, Sodium 140, Potassium 3.8, Chloride 108, Carbon Dioxide 26.0, Anion Gap 6, BUN 10, Creatinine 0.70, Estim Creat Clear Calc 74.23, Est GFR (MDRD) Non-Af 102, BUN/Creatinine Ratio 14.2, Glucose 73, Calcium 8.6 ABG Data ABG results: ABG 06/22/24 09:02 Specimen Type ART Sample Site R Radial pH 7.32 L Bicarbonate Actual 32.4 H Total CO2 34 Base Excess 6 H O2 Saturation 100 H O2 % 2.0 ABG pCO2 63.5 H ABG pO2 196 H Tony Test Positive O2 Delivery Device Cannula Vent Mode Not entered Radiography Diagnostic Testing: Radiology Impression Echocardiogram 06/21/24 21:44 Interpretation Summary The LV systolic function is normal. EF is 65 %. Ordering Physician: Hamlet Olson Referring Physician: Hamlet Olson Performed By: Rafi Snow RCS Renal Ultrasound 06/22/24 05:59 IMPRESSION: 1. Fullness of bilateral renal pelvis with trace hydronephrosis on the RIGHT, improved from previous CT. No visualized nephrolithiasis. 2. Note that the ureters are poorly evaluated sonographically. If there is persistent concern for stricture or ureteral calculus, recommend CT urogram with and without IV contrast. Note a delay to allow passage of the previously seen excreted contrast prior to CT urogram would be optimal. 3. Bladder wall thickening and trabeculation better seen on previous CT, suggesting chronic bladder outlet obstruction and/or cystitis. 4. Additional description as above. Reading Location: [id number] Brain MRI 06/22/24 07:12 IMPRESSION: 1. No acute intracranial abnormality. 2. No suspicious intracranial mass, abnormal parenchymal or leptomeningeal enhancement. 3. Moderate chronic microvascular ischemia and involutional changes. Reading Location[facility]
--- NOTE | 2024-06-23 09:26 | CASEMGMT ---
Social Work- No PHQ-9 completed, as it was medically determined that pt did not have a stroke. SW participated in inter-disciplinary rounds and will continue to follow pt for any supportive needs. HARSH Blake
[2024-06-23] MEDS: Pantoprazole Sodium 40 MG in 0.9% Normal Saline (100mL MB+) 100 ML 330 MG IV (09:38)
[2024-06-23] MEDS: levETIRAcetam IV 1,000 MG/100 ML BAG 400 MG IV (09:41)
[2024-06-23] MEDS: 0.9% Normal Saline (250mL Bag) 250 ML 15 ML IV (09:41)
[2024-06-23] MEDS: Cholecalciferol (VIT D3) 25 MCG TABLET (1,000 UNITS) 50 MCG PO (09:46)
[2024-06-23] MEDS: Tolterodine Tartrate 2 MG CAP.SA PO (09:47)
[2024-06-23] MEDS: Heparin Injection (Vial) 5,000 UNIT/ML VIAL 5000 UNIT SC (09:47)
--- NOTE | 2024-06-23 14:13 | CASEMGMT ---
Corina from [facility] reports that the [facility] referral is still pending at this time. CM to follow.
--- NOTE | 2024-06-23 14:14 | NEURO.CONS ---
Assessment and Plan: Neuro Assessment/Plan ADELAIDA JUNIOR is a 54 F with a past medical history of MS on natalizumab and previous seizure 2/2 SAH, being evaluated by Teleneurology for seizure in the context of suspected sepsis. Unclear if and with what organism she was infected (will defer to primary team on this) but her history and sx would be very consistent with seizure provoked by urosepsis (or even just UTI) lowering the seizure threshold. This could, alternatively, represent emergence of primary seizure disorder after initial seizure of last year. This is really an academic question as in either case she has a clear diathesis for seizure, given history and EEG findings, and she needs to be on an anticonvulsant buttermaker continuous churn. Discussed with patient and that keppra was our safest seizure drug and that her MS doctor would likely be able to prescribe this: if not, her PCP would likely be willing. Diagnosis: seizure disorder Plan: - start Keppra PO 750 mg BID - follow up with established neurologist I personally attended this patient and spent a total time of 45 minutes evaluating this patient including clinical assessment, review of chart, medical history imaging, and determining appropriate treatment and workup. Edgardo Kong MD [employer] [facility] HPI Consult Data Date of Consult: 06/23/24 HPI Narrative HPI Narrative: ADELAIDA JUNIOR, is a 54 F with history of MS on natalizumab and history of provoked seizure 2/2 SAH (2023) on whom we are consulted for witnessed seizure while on keflex for UTI. Found unresponsive by slumped over rollator with (by report) R facial droop after, per report, several days of mild scattered thoughts while on keflex for UTI. EMS summoned and witnessed what they described as GTC for which they administered Versed. In ED loaded with Keppra and evaluated for stroke: MRI does NOT show stroke. In hospital hyotensive requiring pressors and hypothermic and sepsis was suspected. Though no organisms isolated to date, treated with bs abx. While MRI was stable from 06/11/2024 and did not show clearly suspicious cortical focus, EEG notable for asymmetry with structual abnormality LS. On interview today she is alert and responsive but still clearly somewhat encephalopathic; additional history provided by bedside. REPLACED BY [facility] Medical History (Updated 06/22/24 @ 18:[address] Kaelyn Tai DO) Spastic Anxiety Multiple sclerosis Home Medications ?Medication ?Instructions ?Recorded ?Last Taken ?Type levothyroxine 25 mcg tablet 25 mcg PO DAILY 01/26/19 01/26/19 History clonazepam 0.5 mg tablet 0.5 mg PO QHS PRN PRN anxiety 08/26/23 Unknown History natalizumab 300 mg/15 mL 300 mg IV Q28D 08/26/23 Unknown History intravenous solution (Tysabri) cephalexin 500 mg capsule 500 mg PO Q12.TCU 06/21/24 Unknown History cholecalciferol (vitamin D3) 50 50 mcg PO QDAY 06/21/24 Unknown History mcg (2,000 unit) capsule oxybutynin chloride 10 mg 10 mg PO DAILY 06/21/24 Unknown History tablet,extended release 24 hr Allergy/AdvReac Type Severity Reaction Status Date / Time No Known Allergies Allergy Verified 06/21/24 18:45 Social History household members: spouse housing: house Smoking Status: Never smoker Vital Signs Vital Signs Vital Signs: 06/22/24 14:15 06/22/24 14:46 06/22/24 14:57 Temperature Temperature Source Pulse Rate 80 79 Pulse Strength Respiratory Rate 16 14 Respiratory Effort Respiratory Depth Respiratory Pattern Blood Pressure 107/72 102/66 99/68 Blood Pressure Mean 83 78 78 Blood Pressure Source Monitor Monitor Monitor Blood Pressure Position Semi-Fowlers Supine Blood Pressure Location Left Arm Left Arm Pulse Ox 99 100 Oxygen Delivery Method Room Air Room Air 06/22/24 15:09 06/22/24 15:23 06/22/24 16:00 Temperature Temperature Source Pulse Rate 78 80 72 Pulse Strength Respiratory Rate 14 14 Respiratory Effort Respiratory Depth Respiratory Pattern Blood Pressure 92/65 99/70 Blood Pressure Mean 74 79 Blood Pressure Source Monitor Monitor Blood Pressure Position Supine Supine Blood Pressure Location Left Arm Left Arm Pulse Ox 100 100 Oxygen Delivery Method Room Air Room Air 06/22/24 16:00 06/22/24 17:00 06/22/24 18:00 Temperature 95.3 F L Temperature Source Core Pulse Rate 71 77 80 Pulse Strength Respiratory Rate 12 12 14 Respiratory Effort Respiratory Depth Respiratory Pattern Blood Pressure 83/63 L 84/63 L 80/60 L Blood Pressure Mean 69 71 68 Blood Pressure Source Monitor Monitor Monitor Blood Pressure Position Semi-Fowlers Semi-Fowlers Semi-Fowlers Blood Pressure Location Left Arm Left Arm Left Arm Pulse Ox 100 100 100 Oxygen Delivery Method Room Air Room Air 06/22/24 19:00 06/22/24 20:00 06/22/24 20:00 Temperature 96.5 F L Temperature Source Core Pulse Rate 78 77 Pulse Strength Respiratory Rate 14 13 Respiratory Effort Normal Non-Labored Respiratory Depth Normal Respiratory Pattern Normal Blood Pressure 86/66 L 83/61 L Blood Pressure Mean 72 68 Blood Pressure Source Monitor Monitor Blood Pressure Position Semi-Fowlers Semi-Fowlers Blood Pressure Location Left Arm Left Arm Pulse Ox 99 99 Oxygen Delivery Method Room Air Room Air Room Air 06/22/24 21:00 06/22/24 22:00 06/22/24 23:00 Temperature 96.6 F L Temperature Source Core Pulse Rate 79 80 78 Pulse Strength Respiratory Rate 13 13 15 Respiratory Effort Respiratory Depth Respiratory Pattern Blood Pressure 85/54 L 81/58 L 82/57 L Blood Pressure Mean 64 65 65 Blood Pressure Source Monitor Monitor Monitor Blood Pressure Position Semi-Fowlers Semi-Fowlers Semi-Fowlers Blood Pressure Location Left Arm Left Arm Left Arm Pulse Ox 99 99 99 Oxygen Delivery Method Room Air Room Air Room Air 06/23/24 00:00 06/23/24 00:00 06/23/24 01:00 Temperature 96.9 F L Temperature Source Core Pulse Rate 80 79 Pulse Strength Respiratory Rate 13 14 Respiratory Effort Normal Non-Labored Respiratory Depth Normal Respiratory Pattern Normal Blood Pressure 85/56 L 81/57 L Blood Pressure Mean 65 65 Blood Pressure Source Monitor Monitor Blood Pressure Position Semi-Fowlers Semi-Fowlers Blood Pressure Location Left Arm Left Arm Pulse Ox 98 98 Oxygen Delivery Method Room Air Room Air Room Air 06/23/24 02:00 06/23/24 03:00 06/23/24 04:00 Temperature 97.3 F L Temperature Source Core Pulse Rate 83 80 86 Pulse Strength Respiratory Rate 14 12 13 Respiratory Effort Respiratory Depth Respiratory Pattern Blood Pressure 79/58 L 78/57 L 80/65 L Blood Pressure Mean 65 64 70 Blood Pressure Source Monitor Monitor Monitor Blood Pressure Position Semi-Fowlers Semi-Fowlers Semi-Fowlers Blood Pressure Location Left Arm Left Arm Left Arm Pulse Ox 98 98 97 Oxygen Delivery Method Room Air Room Air Room Air 06/23/24 04:00 06/23/24 05:00 06/23/24 06:00 Temperature 97.5 F L Temperature Source Core Pulse Rate 83 83 Pulse Strength Respiratory Rate 14 13 Respiratory Effort Normal Non-Labored Respiratory Depth Normal Respiratory Pattern Normal Blood Pressure 80/56 L 92/54 L Blood Pressure Mean 64 66 Blood Pressure Source Monitor Monitor Blood Pressure Position Semi-Fowlers Semi-Fowlers Blood Pressure Location Left Arm Left Arm Pulse Ox 97 98 Oxygen Delivery Method Room Air Room Air Room Air 06/23/24 07:00 06/23/24 07:42 06/23/24 08:00 Temperature 96.8 F L Temperature Source Core Pulse Rate 80 85 72 Pulse Strength Respiratory Rate 13 13 Respiratory Effort Respiratory Depth Respiratory Pattern Blood Pressure 90/61 90/57 L Blood Pressure Mean 70 68 Blood Pressure Source Monitor Monitor Blood Pressure Position Semi-Fowlers Blood Pressure Location Left Arm Pulse Ox 99 100 Oxygen Delivery Method Room Air Room Air 06/23/24 09:00 06/23/24 09:00 06/23/24 10:00 Temperature 96.8 F L Temperature Source Core Pulse Rate 83 Pulse Strength Normal (2+) Respiratory Rate 13 Respiratory Effort Normal Respiratory Depth Normal Respiratory Pattern Normal Blood Pressure 86/55 L Blood Pressure Mean 66 Blood Pressure Source Monitor Blood Pressure Position Blood Pressure Location Pulse Ox 99 Oxygen Delivery Method Room Air Room Air 06/23/24 10:00 06/23/24 11:00 06/23/24 11:00 Temperature 96.8 F L Temperature Source Core Pulse Rate 74 76 Pulse Strength Respiratory Rate 14 15 Respiratory Effort Respiratory Depth Respiratory Pattern Blood Pressure 93/62 82/65 L Blood Pressure Mean 72 70 Blood Pressure Source Monitor Monitor Blood Pressure Position Blood Pressure Location Pulse Ox 98 99 100 Oxygen Delivery Method Room Air Room Air 06/23/24 12:00 06/23/24 12:00 06/23/24 12:23 Temperature 94.7 F L Temperature Source Core Pulse Rate 75 76 Pulse Strength Respiratory Rate 13 Respiratory Effort Normal Respiratory Depth Normal Respiratory Pattern Normal Blood Pressure 90/66 Blood Pressure Mean 74 Blood Pressure Source Monitor Blood Pressure Position Blood Pressure Location Pulse Ox 100 Oxygen Delivery Method Room Air Room Air 06/23/24 13:00 06/23/24 14:00 Temperature 94.8 F L Temperature Source Core Pulse Rate 85 80 Pulse Strength Respiratory Rate 13 14 Respiratory Effort Respiratory Depth Respiratory Pattern Blood Pressure 91/63 96/62 Blood Pressure Mean 73 74 Blood Pressure Source Monitor Monitor Blood Pressure Position Blood Pressure Location Pulse Ox 99 100 Oxygen Delivery Method Room Air Room Air Weight Weight: 54 kg Body Mass Index (BMI) 21.1 EEG Results Procedure Details EEG Procedure Details: ADELAIDA JUNIOR is a 54 year old F with a past medical history of , who presents for evaluation of Electroencephalogram on DATE at TIME Physical Exam Narrative Alert, speech fluent, willing historian, affect congruent to mood, oriented to self and place and year (not day or situation). Can give days of the week forward easily, struggles with Germain backwards, doesn't know 10/28, can't add 2 quarters and a dime. EOMI, face symmetric, facial sensation intact, tongue midline, no dysarthria or hypophonia, hearing intact to voice, head rotation intact. 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 RUE at least antigravity + throughout LLE not antigravity. RLE by comparison 5/5 (at least antigravity +) at HF and DF. Sensation intact to light touch at all distal extremities. Lab / Micro Data 06/23/24 04:40 06/23/24 04:40 Labs: Laboratory Results - last 24 hr 06/23/24 04:40: WBC 4.9, RBC 3.05 L, Hgb 9.2 L, Hct 27.2 L, MCV 89.2, MCH 30.2, MCHC 33.8, RDW Std Deviation 43.8, RDW Coeff of Ata 13.4, Plt Count 157, MPV 8.8, Immature Gran % (Auto) 0.200, Neut % (Auto) 41.8 L, Lymph % (Auto) 47.4 H, [place] % (Auto) 8.2, Eos % (Auto) 1.6, Baso % (Auto) 0.8, Absolute Neuts (auto) 2.0, Absolute Lymphs (auto) 2.31, Nucleated RBC % 0.4, Differential Comment SCANNED, Platelet Estimate ADEQUATE, RBC Morphology NORM C+C, Sodium 140, Potassium 3.8, Chloride 108, Carbon Dioxide 26.0, Anion Gap 6, BUN 10, Creatinine 0.70, Estim Creat Clear Calc 74.23, Est GFR (MDRD) Non-Af 102, BUN/Creatinine Ratio 14.2, Glucose 73, Calcium 8.6 Imaging Radiology Impression Echocardiogram 06/21/24 21:44 Interpretation Summary The LV systolic function is normal. EF is 65 %. Ordering Physician: Hamlet Olson Referring Physician: Halmet Olson Performed By: Rafi Snow [facility] Brain MRI 06/22/24 07:12 IMPRESSION: 1. No acute intracranial abnormality. 2. No suspicious intracranial mass, abnormal parenchymal or leptomeningeal enhancement. 3. Moderate chronic microvascular ischemia and involutional changes. Reading Location: [facility] Active Medications Active Medications Active Medications: Current Medications Generic Name Dose Route Start Last Admin Trade Name Freq PRN Reason Stop Dose Admin Acetaminophen 650 mg 06/21/24 23:04 Acetaminophen 650 Mg Suppository RC Q6H PRN PRN Pain 1-10 or Fever Atorvastatin Calcium 80 mg 06/21/24 23:04 06/22/24 21:24 Atorvastatin Calcium 80 Mg Tablet PO 80 mg QHS FRANSICO Administration Cholecalciferol 50 mcg 06/22/24 10:00 06/23/24 09:46 Cholecalciferol (Vit D3) 25 Mcg Tablet (1,000 Units) PO 50 mcg DAILY FRANSICO Administration Heparin Sodium (Porcine) 5,000 unit 06/21/24 23:04 06/23/24 09:47 Heparin Injection (Vial) 5,000 Unit/Ml Vial SC 5,000 unit BID FRANSICO Administration Levetiracetam 1,000 mg in 100 mls @ 400 mls/hr 06/22/24 07:00 06/23/24 10:12 IV Infused Q12 FRANSICO Infusion Sodium Chloride 250 mls @ 15 mls/hr 06/21/24 23:17 06/23/24 09:41 IV 15 mls/hr .[id number] PRN Administration Saline Flush Sodium Chloride 250 mls @ 15 mls/hr 06/21/24 23:17 IV .[id number] PRN Additional IVPB Infusion Piperacillin Sod/Tazobactam 50 mls @ 12.5 mls/hr 06/22/24 01:45 06/23/24 10:38 Sod 3.375 gm/ Sodium Chloride IV Infused Q8 FRANSICO Infusion Pantoprazole Sodium 40 mg/ 110 mls @ 330 mls/hr 06/22/24 01:40 06/23/24 10:12 Sodium Chloride IV Infused Q24 FRANSICO Infusion Levothyroxine Sodium 25 mcg 06/22/24 06:00 06/23/24 06:27 Levothyroxine 25 Mcg Tablet PO 25 mcg DAILY@0600 FRANSICO Administration Lorazepam 1 mg 06/21/24 23:04 Lorazepam 2 Mg/Ml Wch Syringe IV Q4H PRN PRN SEIZURES Midodrine 10 mg 06/23/24 06:00 06/23/24 12:13 Midodrine Hcl 5 Mg Tablet PO 10 mg TIDCM FRANSICO Administration Sodium Chloride 10 - 40 ml 06/21/24 23:17 06/22/24 03:35 0.9% Saline Lock 10 Ml Syringe IV 10 ml UD PRN Administration SALINE FLUSH Tolterodine Tartrate 2 mg 06/22/24 10:00 06/23/24 09:47 Tolterodine Tartrate 2 Mg Cap.Sa PO 2 mg DAILY FRANSICO Administration NIHSS NIHSS Nursing Documentation NIHSS Nursing Documentation: NIHSS: Ischemic Stroke/TIA Start: 06/21/24 23:04 Text: For ICU Patients: NIH sroke scale at Status: Complete presentation and every 2 hours or with change in RN caregiver Freq: [id number] Protocol: Activity Type Activity Date Activity User E-sign Co-sign Detail Recorded Client Recorded Date Recorded By Document 06/22/24 16:00 HN [id number] 06/22/24 16:30 HNG 06/22/24 16:00 NIH Stroke Scale [NIHSS] A score of 0 is normal or asymptomatic . Total possible score is 42. Inpatient: RN or Physician to activate a stroke alert for onset of new stroke symptoms or with NIHSS increase >/= 3 points. Following change in neurological status, NIHSS will be performed per physician order or more frequently PRN. -1a. Level of Consciousness 0 - Alert; keenly responsive -1b. LOC Questions 1 - Answers ONE question correctly -1c. LOC Commands 0 - Performs BOTH tasks correctly -2. Best Gaze 0 - Normal -3. Visual 0 - No visual loss -4. Facial Palsy 0 - Normal symmetrical movements -5a. Left Arm UN - Amputation or joint fusion, explain : -'UN' explanation Spastic/ Contracted ( chronic) -5b. Right Arm 0 - No drift; arm holds 90 ( or 45) degrees for full 10 seconds -6a. Left Leg UN - Amputation or joint fusion, explain : -'UN' explanation Spastic/ Contracted ( chronic) -6b. Right Leg 1 - Drift; leg falls by the end of 5- seconds, but does not hit bed -7. Limb Ataxia 0 - Absent -8. Sensory 0 - Normal; no sensory loss -9. Best Language 1 - Mild-to- moderate aphasia; -10. Dysarthria 0 - Normal -11. Extinction and Inattention 0 - No abnormality -Total 3 Query Text:A score of 0 is normal or asymptomatic. Total possible score is 42 . ED: Notify Physician for NIHSS increase by > / = 3 points. Inpatient: RN or Physician to activate a stroke alert for NIHSS increase of > / = 3 points.
--- NOTE | 2024-06-23 15:06 | CASEMGMT ---
Addendum entered by Bridget Forrester 06/23/24 16:21: [facility] returns call and states that they are able to accept and will call Hamlet tomorrow with a finalized SOC date. RN CM to pt room at this time. Updated pt and pt who are agreeable and deny further DC needs at this time. 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 well (Maribel). [facility] also reports that they have been in communication with the liaison and that payment should not be an issue. The HH will have to be billed as SP and [facility] does not normally accept this. However, in this case, the [facility] will likely be able to accept for a SOC on Friday with female HH professionals as requested. Corina reports that she needs to talk to F[facility] prior to finalizing the HH referral, but anticipates that they should be able to accept. Pt and pt's updated with this status at this time and are agreeable and thank this RN CM. Pt's states that they plan to hire a dairy truck driver for pickup today and denies further questions or concerns at this time. Original Note: Dr. Tai states that the pt will likely DC today. TC to [facility] who states that the referral is still pending but that she should know if they can accept or not soon. CM to follow.
--- NOTE | 2024-06-23 15:42 | PCM.DC.SUM ---
Providers Date of Admission: 06/22/24 Date of Discharge: 06/23/24 Primary Care Physician: CONNER Griffith Consultations 06/21/24 23:04 Consult: Tele-Neurology Routine Consulting Provider: [facility] Reason for Consult: Acute Ischemic Stroke/TIA EMERGENT Consult: No MD Notified: Yes Date Notified: 06/21/24 Time Notified: 21:41 Method of Notification: ED Physician Initiated Nursing Unit Staff Notify [facility] of Tele-Neurology Consult: Yes 06/22/24 01:38 Consult: Napkin Machine Operator / Pulmonary Medicine Routine Consulting Provider: Int[facility]ivists/Pulmonary Med Reason for Consult: Sepsis of unknown origin. EMERGENT Consult: No MD Notified: Yes Date Notified: 06/22/24 Time Notified: 01:39 Method of Notification: Verbal 06/22/24 05:57 Consult: Urology Routine Consulting Provider: Annette Arriaga Reason for Consult: Right hydronephrosis with sepsis. EMERGENT Consult: No MD Notified: Yes Date Notified: 06/22/24 Time Notified: 07:56 Method of Notification: Text Reason For Visit: TONIC-CLONIC SEIZURE, AMS AND POSSIBLE TIA Diagnosis Discharge Diagnosis (1) Multiple sclerosis: Status: Acute Code(s): G35 - Multiple sclerosis (2) AMS (altered mental status): Status: Acute Code(s): R41.82 - Altered mental status, unspecified Qualifiers: Altered mental status type: unspecified Qualified Code(s): R41.82 - Altered mental status, unspecified (3) Seizure: Status: Acute Code(s): R56.9 - Unspecified convulsions Medications at Discharge Home Medications levothyroxine 25 mcg tablet 25 mcg PO DAILY 01/26/19 clonazepam 0.5 mg tablet 0.5 mg PO QHS PRN PRN anxiety 08/26/23 natalizumab 300 mg/15 mL intravenous solution (Tysabri) 300 mg IV Q28D 08/26/23 cholecalciferol (vitamin D3) 50 mcg (2,000 unit) capsule 50 mcg PO QDAY 06/21/24 oxybutynin chloride 10 mg tablet,extended release 24 hr 10 mg PO DAILY 06/21/24 amoxicillin 875 mg-potassium clavulanate 125 mg tablet 1 tab PO BID #6 tabs 05/07/25 levetiracetam 750 mg tablet 750 mg PO BID #60 tabs 06/23/24 midodrine 5 mg tablet 10 mg (2 x 5 mg) PO TIDCM #90 tabs 06/23/24 Hospital Course Procedures 2-D Echocardiogram, Electroencephalogram, EKG and - (CT brain/CTA head neck/chest x-ray/abdominal and pelvis CT/renal ultrasound/brain MRI) Summary of Care Provided Minutes Spent on Discharge: 40 Hospital Course: Mrs. Dorsey is a 54-year-old female with a past medical history of multiple sclerosis who had 1 previous seizure about 1 year ago following a's small subarachnoid hemorrhage and had been recently diagnosed with urinary tract infection as an outpatient was placed on Keflex who presented to emergency department [facility] on 06/21/2024 with a chief complaint of altered mental status, right facial droop, and seizure. Patient was last known well on 5 PM when her came in for mowing the lawn and found her unresponsive with her eyes rolled back and she was unable to talk. She was slumped over her rollator walker. Her thought he noted a right facial droop so he activated EMS. Upon squad arrival she had a witnessed tonic-clonic seizure for which she was treated with IV Versed. Patient had intermittently been confused at home prior for about 2 days and that is why she was placed on antibiotic. She had had no known seizures since the 1 she had 1 year ago after her subarachnoid hemorrhage which was related to a fall. She was valuated by [facility] and seizure was suspected with postictal confusion and possible Richy's paralysis with low suspicion for stroke. Vital signs on presentation showed a temperature of 98.6, heart rate 115, respiratory rate was 18, blood pressure was 152/98, pulse ox was 98% on room air. She had significantly altered mental status on arrival to the emergency department due to dosing of Versed. Vital signs on presentation were unremarkable but she did have a leukocytosis at 44.4%. Coags were normal. ABG was done the morning of 06/22/2024 due to altered mental status and she had a pH of 7.32 with a pCO2 of 63.5 and a pO2 of 196. Her chemistry panel was overtly unremarkable. Lactic acid was normal x 2. Liver functions were normal. Ammonia was normal. TSH was mildly elevated with a normal free T4. CT of the brain was unremarkable for any acute findings. CTA of the head and neck was completely unremarkable. Chest x-ray was unremarkable. CT abdomen pelvis was performed and showed platelike atelectasis in the bases of bilateral lungs with contrast material seen in the right and left renal collecting system noting mild to moderate hydronephrosis on the right side with a Shepherd catheter in place and a collapsed bladder with diffuse thickening and and moderate to large amount of ascending and transverse colonic stool. Renal ultrasound showed fullness and bile to renal pelvis with trace hide nephrosis on the right that had improved from previous CT. She was admitted to the ICU and EEG, MRI with and without contrast, and a urology consult was placed. She was started on Keppra IV at 1000 ng twice daily. Urology evaluated the patient and felt that her findings are likely chronic and recommended outpatient follow-up but no inpatient evaluation or treatment was required at the time of the acute admission. Referral was made at the time of discharge. The patient did end up hypotensive briefly and was placed on Levophed temporarily. She was noted to have baseline blood pressures in the 90s systolic per discussion with the . She was placed on midodrine 10 mg 3 times daily and will be discharged with this due to her chronically low blood pressure. Lactate was normal so I do not think that her blood pressure drops were significant from a hemodynamic standpoint. Cultures were obtained and are negative at the time of discharge however not finalized. MRI was performed and was unremarkable for any acute findings. Echocardiogram was unremarkable. EEG showed abnormal awake and sleep EEG with a structural lesion in the left hemisphere but no epileptiform discharges were noted during the time of the evaluation. She was evaluated by neurology and given the fact that this is her second seizure recommended continuing Keppra at discharge 750 mg p.o. twice daily and follow-up with her established neurologist. It is unclear whether or not she actually has a UTI contributing to this. She will be discharged with Augmentin to complete a 5-day course and I will monitor cultures. There is very high likelihood that they may be negative that she was on antibiotics prior to admission. She was referred to her already established neurologist for assistance with her new seizure disorder diagnosis and with urology to be evaluated next week for the findings on her imaging studies. Prescriptions for the Keppra, midodrine, and Augmentin were sent to the pharmacy prior to discharge. Patient was able to be discharged home in stable condition on 06/23/2024 with home health. Discharge diagnoses: Generalized tonic-clonic seizure Undifferentiated shock Right-sided hydronephrosis Urinary tract infection Right-sided facial droop Multiple sclerosis History of falls History of subarachnoid hemorrhage Hypothyroidism Neurogenic bladder Vitamin D deficiency Chronic debility due to multiple sclerosis Physical Exam Const alert, no apparent distress, average body habitus, no limitations and well nourished; Negative for healthy appearing Constitutional Narrative: Middle-aged, [place], white female, sitting up in bed, at bedside, patient much more interactive today, answers all questions appropriately General Appearance: cooperative, comfortable, well kempt and well developed Orientation / Consciousness: lethargic Exam Limitations: no limitations Nutritional Appearance: thin HEENT normocephalic, head/scalp atraumatic, hearing grossly normal bilaterally and moist oral mucous membranes HEENT Narrative: Mallampati 2, no thrush Eyes conjunctivae normal Eyes Narrative: No scleral icterus Neck supple Neck Narrative: Trachea midline Resp normal respiratory effort, no retractions, no use of accessory muscles and clear to auscultation bilaterally Auscultation: Negative for rales, rhonchi or wheezes Cardio regular rate, regular rhythm, S1 normal heart sound, S2 normal heart sound, no murmurs, no rub, no gallops and no clicks GI normal to inspection, nondistended, normoactive bowel sounds, soft to palpation and non-tender Extremity no clubbing, cyanosis or edema Extremity Narrative: Patient with baseline contractures related to her multiple sclerosis especially noted in her left upper extremity Skin skin turgor normal, no jaundice, no petechiae and no mottling Neuro oriented x3 and no focal motor deficits Neuro Narrative: Patient with baseline impairment related to her MS with no acute issues Speech: speech normal Psych Psych Narrative: Much more interactive, affect is normalized and mood is stable Weight / BMI Weight Weight: 54 kg Body Mass Index (BMI) 21.1 ABG / Lab / Microbiology Data 06/23/24 04:40 06/23/24 04:40 Laboratory: Laboratory Results - last 24 hr 06/23/24 04:40: WBC 4.9, RBC 3.05 L, Hgb 9.2 L, Hct 27.2 L, MCV 89.2, MCH 30.2, MCHC 33.8, RDW Std Deviation 43.8, RDW Coeff of Ata 13.4, Plt Count 157, MPV 8.8, Immature Gran % (Auto) 0.200, Neut % (Auto) 41.8 L, Lymph % (Auto) 47.4 H, [place] % (Auto) 8.2, Eos % (Auto) 1.6, Baso % (Auto) 0.8, Absolute Neuts (auto) 2.0, Absolute Lymphs (auto) 2.31, Nucleated RBC % 0.4, Differential Comment SCANNED, Platelet Estimate ADEQUATE, RBC Morphology NORM C+C, Sodium 140, Potassium 3.8, Chloride 108, Carbon Dioxide 26.0, Anion Gap 6, BUN 10, Creatinine 0.70, Estim Creat Clear Calc 74.23, Est GFR (MDRD) Non-Af 102, BUN/Creatinine Ratio 14.2, Glucose 73, Calcium 8.6 Radiography Diagnostic Testing: Radiology Impression Brain MRI 06/22/24 07:12 IMPRESSION: 1. No acute intracranial abnormality. 2. No suspicious intracranial mass, abnormal parenchymal or leptomeningeal enhancement. 3. Moderate chronic microvascular ischemia and involutional changes. [facility] Instructions Discharge Diet: No restrictions Discharge Activity: Return to Normal Activity DC O2, CPAP, BIPAP Needs Home O2 Discharge instructions: No Meaningful Use Info Meaningful Use Meaningful Use Diagnoses (Choose all that apply): None applicable Ischemic Stroke Statin Dosing Therapy Reference: STATIN DOSE THERAPY REFERENCE: * Patients > 75 years receive moderate or high dose statin therapy. * Patients 75 years or YOUNGER should receive HIGH intensity statin dose unless contraindicated. You will be required to document reason for non-treatment if statin daily dose does not meet guidelines. HIGH DOSE STATIN THERAPY DAILY Atorvastatin > than or = to 40 mg Rosuvastatin > than or = to 20 mg Amlodipine + Atorvastatin > than or = to 2.5/40 mg Ezetimibe + Simvastatin 10/80 mg Simvastatin 80mg Discharge Plan Admission Admit Date/Time: 06/22/24 12:23 Primary Reason for Your Visit: Seizure activity Attending Provider: Kaelyn Tai Primary Care Provider: Radha Winter NP Consulting Providers: Marek Venegas; Nasima Echols; Dago Pacheco; Shelby Jensen; Trena Fang; Bautista Reza; Windy Lazo; Tiffany Monroe; Lupillo Rojas; Jessica Grace; Vishnu Lock; Johnathan Ramos; Pepe Norris; Enriqueta Maya; Verona Blackmon; Edgardo Kong; Emma Ha; Timoteo Franklin; Marisela Tai; Melissa Duval; Monica Montesinos; Jaiden Vargas; Amberly Anderson; JACQUELIN QUEEN; Cuong Wilburn; Juju Santos; Hamlet Olson; Jeffrey Stewart; Aiden Elise; Nelson John; Jl Cohen; Hamlet Kumar; Trip Irizarry; Tim Castelan; Abiola Amezcua; Braden Doherty; Vinny Melton; Nicolas Chirinos; Ofelia Santiago; Xavier Franklin; Comfort,Blanquita; Jose,Santi; Avery Kumar; Deric Alvarez; Daniel Koroma; Doni Villar; Breezy Jones; Cas Haley; Natan Navarro; Migue Laura; Annette Arriaga Instructions Additional Instructions / Restrictions: 1. Please see your neurologist in the next month to discuss your seizure disorder and if you should follow-up with your already established neurologist or another neurologist for epilepsy. 2. Please call Dr. Arriaga's office as noted below for a follow-up for your bladder Discharge Orders/Prescriptions Prescriptions: New levetiracetam 750 mg Tablet 750 mg PO BID Qty: 60 1RF midodrine 5 mg Tablet 10 mg PO TIDCM Qty: 90 1RF amoxicillin-pot clavulanate 875-125 mg tablet 1 tab PO BID Qty: 6 0RF Continued levothyroxine 25 MCG tablet 25 mcg PO DAILY Patient Comments: TAKE 1 TABLET BY MOUTH EVERY DAY Tysabri 300 mg/15 mL solution 300 mg IV Q28D Patient Comments: was supposed to get it done 08/26/23 Rx Instructions: administer over 60 mins clonazepam 0.5 mg tablet 0.5 mg PO QHS PRN PRN (Reason: anxiety) oxybutynin chloride 10 mg tablet extended release 24hr 10 mg PO DAILY cholecalciferol (vitamin D3) 50 mcg (2,000 unit) capsule 50 mcg PO QDAY Discontinued cephalexin 500 mg capsule 500 mg PO Q12.TCU Referrals / Follow Up: Annette Arriaga MD [Med Staff - Active Staff] - Within 1 Week Radha Winter NP, CONCESSION WORKER-C [Primary Care Provider] - Within 1 Week Disposition Disposition (needs filled in before D/C Order can be placed): Home Health Service Charges/Coding Visit Charges Inpatient E&M: 67606 Disch Hosp >30min
--- NOTE | 2024-06-23 17:41 | NURSING ---
pt and given discharge instructions including medications, follow up appointments and all other discharge instructions. telemetry removed. Both ivs removed with catheters intact, clean dry dressing applied, pt tolerated well. Picc line removed according to policy, pt tolerated well. assisted pt to get dressed and assisted to the wheelchair. pt and waiting on ride. Pt and deny any further needs at this time.
== END 2024-06-23 18:30 | disposition home health service (06) | DRG 871 ==
LOC: ED 21:24 → ICU 21:59
PROVIDERS: Internal Medicine Critical Care Medicine; Admitting Provider Internal Medicine; Emergency Provider Emergency Medicine; PCP Nurse Practitioner Primary Care; Referring Provider Internal Medicine; Visit Provider Internal Medicine
DX: A41.9 Sepsis, unspecified organism (principal); R65.21 Severe sepsis with septic shock; N13.30 Unspecified hydronephrosis; G40.309 Generalized idiopathic epilepsy and epileptic syndromes, not intractable, without status epilepticus; G40.409 Other generalized epilepsy and epileptic syndromes, not intractable, without status epilepticus; G35 Multiple sclerosis; E03.9 Hypothyroidism, unspecified; F41.9 Anxiety disorder, unspecified; E55.9 Vitamin D deficiency, unspecified; N32.81 Overactive bladder; N31.9 Neuromuscular dysfunction of bladder, unspecified; R53.81 Other malaise; Z79.899 Other long term (current) drug therapy; Z79.890 Hormone replacement therapy; R29.810 Facial weakness; Z87.440 Personal history of urinary (tract) infections; Z91.81 History of falling; Z86.79 Personal history of other diseases of the circulatory system
CPT/HCPCS: 36569; 36600; 51702; 70450; 70496; 70498; 70553; 71045; 74176; 76770; 80048; 80061; 80076; 80307; 81001; 82077; 82140; 82607; 82746; 82803; 83036; 83605; 84439; 84443; 84481; 84484; 85025; 85610; 85730; 87040; 87086; 92523; 92610; 93005; 93306; 94762; 95819; 97110; 97163; 97166; 97530; 99285; A9575; Q9967; A4216

== ENCOUNTER 2024-08-22 16:00 | Emergency (ER) | payer OTHER, SELFPAY ==
[2024-08-22 16:01] VITALS: BP 87/60; PULSE 85; RESP 18; TEMP 36.5; O2SAT 100
[2024-08-22 16:38] VITALS: BMI 20.2
[2024-08-22 16:40] VITALS: BP 81/58; PULSE 83; RESP 16; TEMP 36.5; O2SAT 100
[2024-08-22 16:51] LABS: Hematocrit 35.4 % (37-47); Hemoglobin 11.8 g/dL (12.0-15.0); Immature Granulocytes Count 0.030 X10^3/uL (0.0-0.0); Mean Corp Hgb Conc 33.3 g/dL (32-36); Mean Corpuscular Volume 89.4 fL (81-99); Mean Platelet Vol. 9.7 fl (6.2-12.0); NRBC Flagged by Analyzer 0.2 % (0-5); Platelet Count 208 K/mm3 (150-450); RBC Distribution Width CV 12.4 % (11.6-14.6); RBC Distribution Width SD 40.5 fl (35.1-43.9); Red Blood Count 3.96 M/mm3 (4.2-5.4); White Blood Count 8.9 K/mm3 (4.4-11.0)
[2024-08-22] MEDS: 0.9% Normal Saline (1000mL) 1,000 ML 999 ML IV (16:59)
[2024-08-22 17:09] LABS: Color, Urine Yellow (Yellow); Glucose, Dipstick Normal (Normal); Ketone-Dipstick Negative (Negative); Leukocyte Esterase-Dipstick 500 /ul (Negative); Nitrite-Dipstick Negative (Negative); Occult Blood-Urine 25 /ul (Negative); Protein-Dipstick 30 mg/dl (Negative); Specific Gravity, Urine 1.010 (1.002-1.030); Urine Bilirubin Dipstick Negative (Negative)
[2024-08-22 17:10] VITALS: BP 81/57; PULSE 83; RESP 16; TEMP 37.1; O2SAT 100
[2024-08-22 17:14] LABS: Mucous, Urine 1+ /hpf (<or=2+); Red Blood Cells-Urine 0-5 SEEN /hpf (0-5); Squamous Epithelial Cells - UA 0-5 SEEN /hpf (5-10); Transitional Epithelial - Ur 0-5 SEEN /hpf (0-5)
[2024-08-22 17:19] LABS: Anion Gap 11 (5-15); BUN 15 mg/dL (4-19); BUN/Creat Ratio 16.9 RATIO (10-20); Calcium,Total 9.4 mg/dL (7.6-11.0); Carbon Dioxide 26.3 mmol/L (21.0-32.0); Chloride 98 mmol/L (98-108); Estimated Creatinine Clearance 56.67 ml/min (50-250); Glucose 94 mg/dL (70-99); Potassium 4.2 mmol/L (3.3-5.1)
[2024-08-22 18:16] VITALS: BP 75/56; PULSE 85; RESP 18; TEMP 36.7; O2SAT 100
[2024-08-22] MEDS: 0.9% Normal Saline (250mL Bag) 250 ML 15 ML IV (18:18)
[2024-08-22 19:00] VITALS: BP 87/67; PULSE 86; RESP 18; TEMP 36.8; O2SAT 100
[2024-08-22 19:22] VITALS: BP 91/79
== END 2024-08-22 20:01 | disposition home or self-care (01) ==
PROVIDERS: Physician Assistant; Emergency Provider Emergency Medicine; PCP Nurse Practitioner Primary Care; Visit Provider Emergency Medicine
DX: N39.0 Urinary tract infection, site not specified (principal); I10 Essential (primary) hypertension; F41.9 Anxiety disorder, unspecified; Z79.899 Other long term (current) drug therapy; I95.89 Other hypotension
CPT/HCPCS: 80048; 81001; 83605; 85025; 87086; 96361; 96365; 99285; P9612; A4216